=== PATIENT | female | born 1935 | race Caucasian/White ===

== ENCOUNTER 2016-12-16 23:23 | Inpatient (IN) | payer OTHER ==
[~2016-12-16] VITALS: Ht 152.4 cm; Wt 43.5 kg
[~2016-12-16 23:23] MED LIST: CITA20TA15 PO; GABA100C PO; HYDR-4452 PO; PRED5TAB7 PO; [UNRECOGNIZED DRUG - CODE] PO
[2016-12-16 23:39] VITALS: BP 146/78
--- NOTE | 2016-12-17 00:13 | NUR ---
TO ER BED 8
--- NOTE | 2016-12-17 00:15 | NUR ---
81 Y/O F BIB FAMILY W/C/O ABD PAIN, BACK PAIN AND CHEST PAIN X LAST NIGHT. DENIES ANY SOB. SISTER STATED PT FELL X TIMES LAT NIGHT AND SHE HAS BEING C/O PAIN SINCE THEN. EKG DONE AT BEDSIDE. ER MD MADE AWARE.
[2016-12-17 00:33] LABS: HEMATOCRIT 36.3 % (36-48); HEMOGLOBIN 11.9 g/dL (12.0-16.0); MEAN CORPUSCULAR HEMOGLOBIN 31 pg (27-31); MEAN CORPUSCULAR HGB CONC 33 g/dL (33-37); MEAN CORPUSCULAR VOLUME 95 fL (80-94); PLATELET COUNT (AUTO) 446 K/uL (140-450); RED BLOOD CELL COUNT(AUTO) 3.84 MIL/uL (4.20-5.40); RED CELL DISTRIBUTION WIDTH 13.7 % (11.6-13.7)
[2016-12-17] MEDS ORDERED: KETOROLAC 30 MG/ML VIAL IVP ONE (00:40)
[2016-12-17 00:45] LABS: WHITE BLOOD COUNT (AUTO) 15.9 K/uL (4.8-10.8)
[2016-12-17 00:46] LABS: BAND % (MANUAL) 11 % (0-8); EOSINOPHILS % (MANUAL) 1 % (0-4); LYMPHOCYTES % (MANUAL) 8 % (20-46); MONOCYTES % (MANUAL) 3 % (5-12); NEUTROPHILS % (MANUAL) 77 (43-65)
[2016-12-17 00:50] LABS: ALANINE AMINOTRANSFERASE 16 U/L (12-78); ALBUMIN 3.2 g/dL (3.4-5.0); ALKALINE PHOSPHATASE 59 U/L (46-116); ASPARTATE AMINOTRANSFERASE 17 U/L (15-37); CALCIUM 8.9 mg/dL (8.5-10.1); CARBON DIOXIDE 25.7 mmol/L (21-32); CHLORIDE 94 mmol/L (98-107); CREATININE 0.8 mg/dL (0.6-1.3); GLUCOSE 95 mg/dL (74-106); POTASSIUM 3.7 mmol/L (3.5-5.1); SODIUM SERUM 129 mmol/L (136-145); TOTAL BILIRUBIN 0.5 mg/dL (0.0-1.0); TOTAL PROTEIN, SERUM 7.5 g/dL (6.4-8.2); UREA NITROGEN, BLOOD 9 mg/dL (7-18)
[2016-12-17 00:55] LABS: INR 1.1 (0.8-1.2); LACTIC ACID 1.4 mmol/L (0.4-2.0); PARTIAL THROMBOPLASTIN TIME 25.7 secs (22-35.6); PROTHROMBIN TIME 10.9 secs (10.8-13.4)
--- NOTE | 2016-12-17 01:20 | NUR ---
PT RESTING IN BED, NO S/S OF DISTRESS NOTED AT THE MOMENT.
[2016-12-17] MEDS ORDERED: fentaNYL 0.05 MG/ML VIAL IVP ONE (01:30)
[2016-12-17 01:34] LABS: APPEARANCE,URINE SL CLOUDY (CLEAR); BILIRUBIN,URINE NEGATIVE (NEGATIVE); BLOOD, URINE TRACE-I (NEGATIVE); COLOR,URINE YELLOW (YELLOW); LEUKOCYTE ESTERASE ,URINE 2+ (NEGATIVE); NITRITE, URINE POSITIVE (NEGATIVE); PROTEIN,URINE NEGATIVE (NEGATIVE); UGLUCOSE NEGATIVE (NEGATIVE)
[2016-12-17 01:50] LABS: BACTERIA,URINE 4+ /HPF (None Seen); SQUAMOUS EPITHELIAL CELL,UR 0-3 (FEW) /LPF (0-3 (FEW)); URINE AMORPHOUS URATE 3+ /HPF (None Seen)
[2016-12-17] MEDS ORDERED: LEVOFLOXACIN 500 MG/D5W PREMIX 100 ML IV ONE (02:10)
[2016-12-17] MEDS ORDERED: LORazepam 2 MG/ML VIAL IVP ONE (02:20)
--- NOTE | 2016-12-17 03:19 | NUR ---
Patient will be admitted to care of DR BABIN. Admited to MED SURG. Will go to [facility] [address]. Belongings list completed. Report to IGNACIO HARPER. PT STABLE WITH VSS AT THE MOMENT.
--- NOTE | 2016-12-17 03:24 | NUR ---
PT TRASPORTED TO MED SURG VIA GURNEY BY EMT. THEODORE GIBBS.
[2016-12-17 03:25] VITALS: BP 109/64
--- NOTE | 2016-12-17 03:25 | NUR ---
Admitted from ER TO [facility], with chief complaint of ABDOMINAL PAIN, S/P FALL AT HOME , 81 y/o ,Female, Cooperative, AWAKE, A/OX2, FORGETFUL. HEAD TO TOE ASSESSMENT DONE WITH CHARGE NURSE KIKI, NOTED BRUISE ON BACK OF LEFT THIGH, AND PRESSURE ULCER AT THE SACRAL AREA. SAFETY MEASURES ENFORCED. NIECES AT THE BEDSIDE.oriented to call light, bed, phone,television, bathroom, smoking policy,visiting hours, procedures, ID bracelet on. Belongings list checked.
[2016-12-17] MEDS ORDERED: NACL 0.9% IRR 250 ML BOTTLE IR PRN (03:45)
[2016-12-17] MEDS ORDERED: Z-GUARD PASTE TP PRN (03:45)
[2016-12-17 04:00] VITALS: BP 110/66
--- NOTE | 2016-12-17 04:00 | NUR ---
Patient's Plan of Care was discussed and reviewed with RAMP MANAGER: MEREDITH MALIN
--- NOTE | 2016-12-17 07:00 | NUR ---
DR. BABIN CAME AND CHECKED PATIENT. WILL FOLLOW UP WITH NEW ORDERS.
--- NOTE | 2016-12-17 07:20 | NUR ---
RECEIVED PATIENT REPORT AT BEDSIDE. PATIENT ASLEEP BUT AROUSABLE. NO S/S OF DISTRESS NOTED. PATIENT ON ROOM AIR. IV LINE NOTED TO THE LEFT WRIST SALINE LOCKED. BED LOWERED WITH CALL LIGHT WITHIN REACH. WILL CONTINUE TO MONITOR
[2016-12-17] MEDS ORDERED: PANTOPRAZOLE 40 MG TABEC PO SCH (07:26)
[2016-12-17 08:00] VITALS: BP 119/58
--- NOTE | 2016-12-17 09:14 | NUR ---
PATIENT HAS BEEN SCREENED AND CATEGORIZED HIGH NUTRITION RISK. PATIENT WILL BE SEEN WITHIN 1-2 DAYS OF ADMISSION. 12/17/16-12/18/[address]
--- NOTE | 2016-12-17 09:30 | NUR ---
ADMINISTERED DUE MEDS. PATIENT TOLERATED WELL
[2016-12-17] MEDS: HYDROmorphone 1 MG/ML AMP IVP PRN ×3 (09:39→23:54)
[2016-12-17] MEDS: CITALOPRAM 20 MG TAB PO SCH (09:43)
[2016-12-17] MEDS: GABAPENTIN 100 MG CAP PO SCH (09:43)
[2016-12-17] MEDS: DOCUSATE SODIUM 100 MG GELCAP PO SCH ×2 (09:43→22:34)
[2016-12-17] MEDS: ENOXAPARIN 30 MG/0.3 ML SYR SUBQ SCH (09:44)
[2016-12-17] MEDS: DEXT 5% /NACL 0.9% 1,000 ML IV SCH (09:45)
[2016-12-17] MEDS: NACL 0.9% IRR 250 ML BOTTLE IR SCH (13:00)
[2016-12-17] MEDS: Z-GUARD PASTE TP SCH (13:00)
--- NOTE | 2016-12-17 13:00 | NUR ---
PATIENT ASLEEP IN BED. NO S/S OF DISTRESS NOTED
--- NOTE | 2016-12-17 14:40 | NUR ---
12/17/16 RD INITIAL ASSESSMENT COMPLETED PLEASE REFER TO NUTRITION ASSESSMENT UNDER CARE ACTIVITY FOR ESTIMATED NUTRITIONAL NEEDS. 1. CONTINUE REGULAR, MECHANICAL SOFT DIET 2. ADD VITAMIN C SUPPLEMENT 100-200 MG/DAILY 3. RD TO FOLLOW-UP 2-3 DAYS; HIGH RISK RUTH MCCLENDON, ROXANE
[2016-12-17 16:00] VITALS: BP 110/53
--- NOTE | 2016-12-17 17:07 | NUR ---
Social Service Note: Per patient's daughter Latoya, she spoke with MD and MD informed her patient will need short term snf placement for physical therapy. She stated [facility] sn[facility] preference [facility] , her second snf choice is [facility] . I faxed inquiry to Priyanka Hester.
--- NOTE | 2016-12-17 17:50 | NUR ---
SPOKE WITH RALPH, PATIENT'S NIECE, AND WAS INFORMED THAT PATIENT WAS SCHEDULED TO HAVE COLONOSCOPY AND EGD OUTPATIENT PRIOR TO BEING ADMITTED TO THE HOSPITAL. DR BABIN NOTIFIED. DR BABIN ALSO NOTIFIED OF THE PATIENT'S PERSISTENT ABD PAIN. DR BABIN ORDERS TO HAVE DR GRANT GI CONSULT. DR GRANT PAGED. WAITING FOR CALL BACK
--- NOTE | 2016-12-17 19:42 | NUR ---
PATIENT REPORT GIVEN AT BEDSIDE. PATIENT ENDORSED IN STABLE CONDITION
--- NOTE | 2016-12-17 19:45 | NUR ---
RECEIVED BEDSIDE REPORT FROM RITO PIERRE. PATIENT IS AWAKE AND RESTING IN BED, WITH FAMILY AT BEDSIDE. NO SIGNS OF ACUTE DISTRESS OR SOB NOTED. THERE IS A #24 IN THE LEFT WRIST WITH D5NS AT 50 ML/HR. SITE IS DRY, INTACT, AND ASYMPTOMATIC. THERE IS A TORO CATHETER IN PLACE DRAINING TO GRAVITY. THERE IS A MODERATE AMOUNT OF CLEAR LIGHT CRISTOBAL URINE NOTED IN THE TORO BAG. THERE IS A SACRAL PRESSURE ULCER. TONIGHT'S PLAN OF CARE TO INCLUDE MEDICATION ADMINISTRATION, VITAL SIGNS, MONITORING, AND REPOSITION Q2H TO OFFLOAD PRESSURE AREAS. HOB AT 30 DEGREES. SAFETY MEASURES ENFORCED, WITH CALL LIGHT WITHIN REACH. WILL CONTINUE TO MONITOR PATIENT.
--- NOTE | 2016-12-17 20:40 | NUR ---
PATIENT'S NIECE RALPH AT BEDSIDE VISITING PATIENT. NO SIGNS OF ACUTE DISTRESS NOTED. CALL LIGHT WITHIN REACH. CONTINUE TO MONITOR PATIENT.
--- NOTE | 2016-12-17 20:48 | NUR ---
PATIENT'S NIECE RALPH LEFT UNIT. NO SIGNS OF DISTRESS NOTED. CONTINUE TO MONITOR PATIENT.
[2016-12-17] MEDS ORDERED: predniSONE 5 MG TAB ONE (21:28)
[2016-12-17] MEDS: predniSONE 5 MG TAB PO SCH (21:32)
[2016-12-17] MEDS: HYDROcodone/APAP 10/325 MG 1 TAB TAB PO PRN (21:32)
--- NOTE | 2016-12-17 21:34 | NUR ---
TOLERATED DUE MEDICATIONS. UNABLE TO ACCESS AND ADMINISTER SCHEDULE 2100 COLACE 100MG PO. ENGINE[employer]ING [employer] RN AND CHARGE NURSE DAVID PIERRE MADE AWARE. ASKED [employer] RN TO FOR MEDICATION TO ADMINISTER TO PATIENT. WILL ADMINISTER MEDICATION ONCE I RECEIVE IT FROM LIZZY KEVIN RN. CONTINUE TO MONITOR PATIENT.
[2016-12-17] MEDS ORDERED: HYDROcodone/APAP 10/325 MG 1 TAB TAB ONE (21:35)
--- NOTE | 2016-12-17 23:54 | NUR ---
PATIENT REPORTING PAIN 10/10. PATIENT'S VITAL SIGNS ARE 137/66 AND HR 104. ADMINISTERED 0.5MG DILAUDID PRN PER DOCTOR'S ORDERS. CONTINUE TO MONITOR PATIENT.
[2016-12-17] MEDS ORDERED: HYDROmorphone 1 MG/ML AMP ONE (23:57)
[2016-12-18] VITALS: BP 137/66
[2016-12-18] MEDS: Z-GUARD PASTE TP SCH ×2 (00:10→12:14)
[2016-12-18] MEDS: NACL 0.9% IRR 250 ML BOTTLE IR SCH ×2 (00:10→12:15)
--- NOTE | 2016-12-18 02:00 | NUR ---
PATIENT RESTING COMFORTABLY IN BED WITH NO SIGNS OF DISTRESS NOTED. CALL LIGHT WITHIN REACH. CONTINUE TO MONITOR PATIENT.
[2016-12-18] MEDS: DEXT 5% /NACL 0.9% 1,000 ML IV SCH ×2 (03:00→05:32)
--- NOTE | 2016-12-18 03:30 | NUR ---
ROUNDED ON PATIENT. PATIENT IS RESTING COMFORTABLY IN BED. BREATHING IS EVEN AND UNLABORED. SAFETY MEASURES ENFORCED, WITH CALL LIGHT WITHIN REACH. WILL CONTINUE TO MONITOR PATIENT.
--- NOTE | 2016-12-18 04:55 | NUR ---
REPOSITIONED PATIENT FOR COMFORT. NO SIGNS OF DISTRESS NOTED. PATIENT'S NEEDS MET AT THIS TIME. SAFETY MEASURES ENFORCED, WITH CALL LIGHT WITHIN REACH. CONTINUE TO MONITOR PATIENT.
[2016-12-18] MEDS: PANTOPRAZOLE 40 MG TABEC PO SCH (05:32)
[2016-12-18 06:07] LABS: BASOPHILS # (AUTO) 0.2 K/uL (0.00-0.22); BASOPHILS % (AUTO) 1.4 % (0.0-2.0); EOSINOPHILS # (AUTO) 0.1 K/uL (0-0.4); EOSINOPHILS % (AUTO) 1.1 % (0.0-4.0); HEMATOCRIT 31.5 % (36-48); LYMPHOCYTES # (AUTO) 0.6 K/uL (2.5-16.5); LYMPHOCYTES % (AUTO) 4.6 % (20.5-51.1); MEAN CORPUSCULAR HEMOGLOBIN 30 pg (27-31); MEAN CORPUSCULAR HGB CONC 32 g/dL (33-37); MEAN CORPUSCULAR VOLUME 96 fL (80-94); MONOCYTES # (AUTO) 0.8 K/uL (0.8-1.0); MONOCYTES % (AUTO) 6.4 % (1.7-9.3); NEUTROPHILS # (AUTO) 10.6 K/uL (1.8-7.7); NEUTROPHILS % (AUTO) 86.5 % (42.2-75.2); PLATELET COUNT (AUTO) 329 K/uL (140-450); RED CELL DISTRIBUTION WIDTH 13.7 % (11.6-13.7)
[2016-12-18 06:35] LABS: CALCIUM 7.8 mg/dL (8.5-10.1); CARBON DIOXIDE 24.3 mmol/L (21-32); CHLORIDE 101 mmol/L (98-107); CREATININE 0.7 mg/dL (0.6-1.3); GLUCOSE 106 mg/dL (74-106); POTASSIUM 4.3 mmol/L (3.5-5.1); SODIUM SERUM 132 mmol/L (136-145); UREA NITROGEN, BLOOD 8 mg/dL (7-18)
[2016-12-18] MEDS: HYDROcodone/APAP 10/325 MG 1 TAB TAB PO PRN ×2 (06:43→17:03)
--- NOTE | 2016-12-18 07:06 | NUR ---
DR. BABIN AT THE NURSING STATION. PROVIDED DOCTOR WITH PATIENT'S STATUS. NO NEW ORDERS GIVEN AT THIS TIME.
--- NOTE | 2016-12-18 07:09 | NUR ---
PATIENT IN STABLE CONDITION. ENDORSED CONTINUITY OF CARE TO NICOLAS PIERRE AND CLAIRE PIERRE.
[2016-12-18 07:18] LABS: WHITE BLOOD COUNT (AUTO) 12.3 K/uL (4.8-10.8)
--- NOTE | 2016-12-18 07:28 | NUR ---
RECEIVED PATIENT IN STABLE CONDITION FROM JESI RN. WILL MONITOR PATIENT.
--- NOTE | 2016-12-18 07:30 | NUR ---
RECEIVED PATIENT AWAKE, ORIENTED TO SELF. ABLE TO MAKE HER NEEDS KNOWN. LEFT WRIST PERIPHERAL IV PATENT AND INTACT. URINE AND BOWEL INCONTINENT. NO COMPLAINTS OF PAIN AT THIS TIME. CALL LIGHT WITHIN REACH. WILL MONITOR PATIENT.
[2016-12-18 08:15] VITALS: BP 147/59
[2016-12-18] MEDS: HYDROmorphone 1 MG/ML AMP IVP PRN ×2 (08:49→21:15)
[2016-12-18] MEDS: DOCUSATE SODIUM 100 MG GELCAP PO SCH ×2 (08:55→21:14)
[2016-12-18] MEDS: CITALOPRAM 20 MG TAB PO SCH (08:55)
[2016-12-18] MEDS: GABAPENTIN 100 MG CAP PO SCH (08:56)
[2016-12-18] MEDS: ENOXAPARIN 30 MG/0.3 ML SYR SUBQ SCH (09:03)
--- NOTE | 2016-12-18 10:19 | NUR ---
RESTING COMFORTABLE AT THIS TIME. CALL LIGHT WITHIN REACH.
--- NOTE | 2016-12-18 10:39 | NUR ---
SS NOTE: PER SOHAIL FROM [facility] ([phone]), THEY ARE ABLE TO ACCEPT PT UPON DISCHARGE LONG PT HAS 3 QUALIFYING MIDNIGHTS.
[2016-12-18 16:00] VITALS: BP 145/63
--- NOTE | 2016-12-18 19:18 | NUR ---
REPORT GIVEN TO NIGHT NURSE FOR CONTINUITY OF CARE. PATIENT IN STABLE CONDITION.
--- NOTE | 2016-12-18 19:30 | NUR ---
RECEIVED REPORTS FROM DAY RN. MED-SURG PT RESTING IN BED. AWAKE, ALERT, ORIENTED X2-3. IV LT, WRIST, 24G, FLUID INFUSING WELL, TORO CATH PATENT AND DRAINING CLEAR YELLOW URINE. REDNESS WITH PARTIAL THICKNESS NOTED ON THE SACRALCOCCYX TO BILATERAL BUTTOCKS. CALL LIGHT WITHIN REACH, SAFETY MEASURE ENSURED, WILL CONTINUE TO MONITOR.
--- NOTE | 2016-12-18 21:00 | NUR ---
DAUGHTER AT BEDSIDE. HAVE CONCERN REGARDING ABDOMINAL PAIN OF PT. MADE AWARE THAT THERE IS AN ORDER FOR GI CONSULT. WILL FOLLOW UP BY CALLING DR. GRANT.
[2016-12-18] MEDS: predniSONE 5 MG TAB PO SCH (21:14)
--- NOTE | 2016-12-18 21:43 | NUR ---
PAGED DR. Terri GRANT TO FOLLOW UP CONSULT . LEFT MESSAGE ON THE PAGER. WILL WAIT FOR CALL BACK.
--- NOTE | 2016-12-18 22:40 | NUR ---
CALLED AGAIN DR. Terri GRANT ON . TALKED TO DR GRANT. MADE HIM AWARE ABOUT THE CONSULT. WILL SEE PT TOMORROW.
[2016-12-19] VITALS: BP 167/65
[2016-12-19] MEDS: NACL 0.9% IRR 250 ML BOTTLE IR SCH ×2 (01:14→12:41)
[2016-12-19] MEDS: Z-GUARD PASTE TP SCH ×2 (01:14→12:41)
[2016-12-19] MEDS: HYDROcodone/APAP 10/325 MG 1 TAB TAB PO PRN ×2 (02:17→17:46)
--- NOTE | 2016-12-19 02:53 | NUR ---
IV ACCESS ON THE RT THUMB INFILTRATED,. DC'D. STARTED A NEW IV ACCESS ON THE RT FA#[id number]. WITH GOOD BLOOD RETURN, CLEAR AND PATENT.
[2016-12-19] MEDS: DEXT 5% /NACL 0.9% 1,000 ML IV SCH ×2 (02:56→12:42)
--- NOTE | 2016-12-19 04:30 | NUR ---
PT AWAKE, NO DISTRESS NOTED. WILL CONTINUE TO MONITOR.
[2016-12-19 05:54] LABS: BASOPHILS % (AUTO) 0.2 % (0.0-2.0); EOSINOPHILS # (AUTO) 0.1 K/uL (0-0.4); EOSINOPHILS % (AUTO) 1.2 % (0.0-4.0); HEMATOCRIT 28.1 % (36-48); HEMOGLOBIN 9.3 g/dL (12.0-16.0); LYMPHOCYTES # (AUTO) 0.6 K/uL (2.5-16.5); LYMPHOCYTES % (AUTO) 5.7 % (20.5-51.1); MEAN CORPUSCULAR HEMOGLOBIN 32 pg (27-31); MEAN CORPUSCULAR HGB CONC 33 g/dL (33-37); MEAN CORPUSCULAR VOLUME 96 fL (80-94); MONOCYTES # (AUTO) 1.1 K/uL (0.8-1.0); MONOCYTES % (AUTO) 10.5 % (1.7-9.3); NEUTROPHILS # (AUTO) 8.5 K/uL (1.8-7.7); NEUTROPHILS % (AUTO) 82.4 % (42.2-75.2); PLATELET COUNT (AUTO) 286 K/uL (140-450); RED BLOOD CELL COUNT(AUTO) 2.93 MIL/uL (4.20-5.40); RED CELL DISTRIBUTION WIDTH 13.3 % (11.6-13.7)
[2016-12-19] MEDS: HYDROmorphone 1 MG/ML AMP IVP PRN ×2 (06:05→23:35)
[2016-12-19] MEDS: PANTOPRAZOLE 40 MG TABEC PO SCH (06:11)
[2016-12-19 06:24] LABS: ALANINE AMINOTRANSFERASE 11 U/L (12-78); ALBUMIN 2.1 g/dL (3.4-5.0); ALKALINE PHOSPHATASE 39 U/L (46-116); ANION GAP 10.6 (8-16); ASPARTATE AMINOTRANSFERASE 11 U/L (15-37); CALCIUM 7.8 mg/dL (8.5-10.1); CARBON DIOXIDE 24.2 mmol/L (21-32); CHLORIDE 101 mmol/L (98-107); CREATININE 0.6 mg/dL (0.6-1.3); GLUCOSE 102 mg/dL (74-106); POTASSIUM 3.8 mmol/L (3.5-5.1); SODIUM SERUM 132 mmol/L (136-145); TOTAL BILIRUBIN 0.3 mg/dL (0.0-1.0); TOTAL PROTEIN, SERUM 5.5 g/dL (6.4-8.2); UREA NITROGEN, BLOOD 5 mg/dL (7-18)
--- NOTE | 2016-12-19 06:45 | NUR ---
PT RESTING IN BED, NO S/S OF ACUTE DISTRESS OR DISCOMFORT NOTED, RESPIRATION EVEN AND UNLABORED, CALL LIGHT WITHIN REACH, SAFETY MEASURE ENSURED ,WILL CONTINUE TO MONITOR.
[2016-12-19 06:58] LABS: WHITE BLOOD COUNT (AUTO) 10.3 K/uL (4.8-10.8)
--- NOTE | 2016-12-19 07:20 | NUR ---
ENDORSED PLAN OF CARE TO DAY RN, PT IS STABLE.
--- NOTE | 2016-12-19 07:30 | NUR ---
PATIENT ALERT ORIENTED X 2 WITH HISTORY OF ALZHEIMER, DAUGHTER AT BEDSIDE. FALL PREVENTION IN PLACED.
[2016-12-19 08:00] VITALS: BP 159/83
[2016-12-19] MEDS: GABAPENTIN 100 MG CAP PO SCH (09:00)
[2016-12-19] MEDS: DOCUSATE SODIUM 100 MG GELCAP PO SCH ×2 (09:01→21:22)
[2016-12-19] MEDS: CITALOPRAM 20 MG TAB PO SCH (09:01)
[2016-12-19] MEDS: ENOXAPARIN 30 MG/0.3 ML SYR SUBQ SCH (09:05)
--- NOTE | 2016-12-19 09:49 | NUR ---
Social Service Note: Per Deena from [facility] , bed will be available tomorrow, 37A station 2.
--- NOTE | 2016-12-19 13:01 | NUR ---
SPOKE WITH SOHAIL FROM [facility]. WHEN SHE GOES TO [facility], SHE WILL BE UNDER DR. LILIANA BABIN. I CALLED [facility] AND GOT SWANSON QUOTES FOR TRANSPORT. FOR GURNEY TO SNF IS $118 AND FOR WC TRANSPORT IS $69. THAT IS THEIR WEEKEND RATE. I CALL THE NIECE, RALPH, AND TOLD HER ABOUT POS DC TOMORROW TO [facility] AND SHE WOULD GO TO ROOM 37A. I ASKED HER IF SHE WAS ABLE TO PAY FOR TRANSPORT, AND SHE SAID NO. I ALSO INFORMED HER THAT THE PATIENT NO LONGER HAD [facility] AND SHE MAY WANT TO CHECK INTO IT. SHE SAID SHE WOULD BE ABLE TO TRANSPORT THE PATIENT TO SNF. I SPOKE WITH SCOTT PIERRESTACKER STRAIGHTENER NURSE AND TOLD HER WHAT RALPH SAID, BUT I TOLD HER TO MAKE SURE IT WAS SAFE FOR NIECE TO TRANSPORT PATIENT, IF NOT USE [facility]. RALPH ALSO SAID SHE DOESN'T WANT THE PATIENT TO GO TO THE SNF UNTIL SEEN BY GI. I INFORMED SCOTT PIERRESTACKER STRAIGHTENER ANNMARIE.
--- NOTE | 2016-12-19 14:00 | NUR ---
PER DR. GRANT PATIENT CLEARED FOR DISCHARGE PER GI STANDPOINT, NO NEED TO REPEAT PROCEDURE.
[2016-12-19 16:00] VITALS: BP 158/77
--- NOTE | 2016-12-19 19:49 | NUR ---
SBAR REPORT GIVEN TO NIGHT RN IN A STABLE CONDITION.
--- NOTE | 2016-12-19 19:55 | NUR ---
RECEIVED REPORTS FROM DAY RN. MED-SURG PT RESTING IN BED. AWAKE, ALERT, ORIENTED X2. FAMILY MEMBER IS AT BEDSIDE, VITAL SIGN TAKEN, READ , T 98.3, BP 123/51, HR 81, RR 18, O2 SAT 97%. IV PATENT AND INTACT, FLUID INFUSING WELL, TORO CATH PATENT AND DRAINING CLEAR YELLOW URINE. REDNESS NOTED ON THE SACRALCOCCYX TO BILATERAL BUTTOCKS. CALL LIGHT WITHIN REACH, SAFETY MEASURE ENSURED, WILL CONTINUE TO MONITOR.
[2016-12-19] MEDS: predniSONE 5 MG TAB PO SCH (21:22)
[2016-12-19] MEDS: SENNA 8.6 MG TAB PO SCH (21:22)
--- NOTE | 2016-12-19 21:27 | NUR ---
PT RESTING IN BED, NO S/S OF ACUTE DISTRESS NOTED, PM MEDS GIVEN, PT TOLERATED WELL. CALL LIGHT WITHIN REACH, SAFETY MEASURE ENSURED, WILL CONTINUE TO MONITOR
--- NOTE | 2016-12-19 23:30 | NUR ---
PT ASLEEP IN BED, RESPIRATION EVEN AND UNLABORED, NO S/S OF ACUTE DISTRESS NOTED, CALL LIGHT WITHIN REACH, SAFETY MEASURE ENSURED, WILL CONTINUE TO MONITOR.
--- NOTE | 2016-12-19 23:35 | NUR ---
PT CALLED AND STATED PAIN 8/10 AROUND ABDOMINAL AREA. PAIN MEDICATION GIVEN ORDERED, WILL REASSESS PAIN LEVEL WITHIN 30MINS.
[2016-12-20] VITALS: BP 154/73
--- NOTE | 2016-12-20 00:05 | NUR ---
PT ASLEEP IN BED, RESPIRATION EVEN AND UNLABORED, NO S/S OF DISCOMFORT NOTED, CALL LIGHT WITHIN REACH, WILL CONTINUE TO MONITOR.
[2016-12-20] MEDS: Z-GUARD PASTE TP SCH ×2 (01:54→13:00)
[2016-12-20] MEDS: NACL 0.9% IRR 250 ML BOTTLE IR SCH ×2 (01:54→13:00)
--- NOTE | 2016-12-20 02:53 | NUR ---
PT SLEEPING IN BED, NO S/S OF ACUTE DISTRESS NOTED. RESPIRATION EVEN AND UNLABORED, WILL CONTINUE TO MONITOR
[2016-12-20] MEDS: DEXT 5% /NACL 0.9% 1,000 ML IV SCH (05:10)
[2016-12-20] MEDS: PANTOPRAZOLE 40 MG TABEC PO SCH (06:04)
[2016-12-20] MEDS: HYDROcodone/APAP 10/325 MG 1 TAB TAB PO PRN ×2 (06:50→13:46)
--- NOTE | 2016-12-20 06:50 | NUR ---
PT STATED PAIN 6/10. PAIN MED GIVEN ORDERED. NO S/S OF ACUTE DISTRESS NOTED. WILL CONTINUE TO MONITOR
--- NOTE | 2016-12-20 07:30 | NUR ---
ENDORSED PLAN OF CARE TO DAY RN, PT IS STABLE.
--- NOTE | 2016-12-20 07:35 | NUR ---
RECEIVED REPORT FROM IGNACIO NICHOLAS. PT IS AWAKE, RESTING IN BED, PT IS A/OX3, HAS IV ON THE RT FA, PATENT, INTACT, INFUSING WELL, SACRAL DRYNESS NOTED, THERE IS NO OPEN WOUND, NO S/S OF RESPIRATORY DISTRESS OR DISCOMFORT NOTED, SAFETY/FALL PRECAUTIONS ARE IN PLACE, CALL LIGHT IS WITHIN REACH, WILL CONTINUE TO MONITOR.
[2016-12-20 08:00] VITALS: BP 152/66
--- NOTE | 2016-12-20 08:00 | NUR ---
PATIENT'S NIECE IS AT PT BEDSIDE AT THIS TIME.
--- NOTE | 2016-12-20 08:20 | NUR ---
CALLED DR. BABIN TO LET HIM KNOW THE PATIENT'S FAMILY WAS HERE AND WANTED TO SPEAK TO HIM, DR. BABIN SAID HE WAS ON HIS WAY AND WOULD BE HERE IN ABOUT HALF HOUR.
[2016-12-20] MEDS: CITALOPRAM 20 MG TAB PO SCH (08:37)
[2016-12-20] MEDS: GABAPENTIN 100 MG CAP PO SCH (08:37)
[2016-12-20] MEDS: SENNA 8.6 MG TAB PO SCH (08:38)
[2016-12-20] MEDS: DOCUSATE SODIUM 100 MG GELCAP PO SCH (08:38)
--- NOTE | 2016-12-20 08:38 | NUR ---
DUE MEDICATIONS GIVEN, PT TOLERATED WELL, NIECE IS AT BEDSIDE, CALL LIGHT WITHIN REACH, WILL CONTINUE TO MONITOR.
[2016-12-20] MEDS: ENOXAPARIN 30 MG/0.3 ML SYR SUBQ SCH (08:50)
[2016-12-20] MEDS ORDERED: LACTULOSE 20 GM/30 ML UDC PO SCH (09:00)
--- NOTE | 2016-12-20 09:23 | NUR ---
12/20/16 RD FOLLOW UP COMPLETED PLEASE REFER TO NUTRITION PROGRESS NOTE UNDER CARE ACTIVITY FOR ESTIMATED NUTRITION NEEDS. RD RECOMMENDATIONS: 1. CONTINUE ON CURRENT DIET. 2. RDN TO PROVIDE HEALTH SHAKE WITH MEALS TID FOR UNDERWT STATUS. 3. RD WILL F/U 5-7 DAYS; LOW RISK. MICHOACANO BALL MS, RDN
--- NOTE | 2016-12-20 09:56 | NUR ---
Social Service Note: I called and spoke with foundry supervisor Indu from [facility] , informed her patient will be transfer to their facility today. Per Indu, patient may go to same room # 37A station 2, I faxed MD discharge order to [facility].
--- NOTE | 2016-12-20 10:40 | NUR ---
PT IS SLEEPING IN BED AT THIS TIME, NO S/S OF RESPIRATORY DISTRESS OR DISCOMFORT NOTED, CALL LIGHT WITHIN REACH.
--- NOTE | 2016-12-20 11:05 | NUR ---
SPOKE WITH PT'S NIECE RALPH AT THE BEDSIDE EARLIER AND EXPRESSED HER CONCERN IN TAKING PT TO [facility] HERSELF ( PT IS A FALL RISK ) AND SHE IS BY HERSELF BUT SHE DOES NOT HAVE MEANS TO PAY [facility] OR [facility]. PER ENDORSEMENT FROM PRE[facility] SHIFT PT CAN BE TRANSPORTED BY [facility] AND [facility] IF THERE IS SAFETY ISSUE. SOHAM- SPACE PHYSICIST MADE AWARE. CALLED [facility] AND SPOKE WITH FARZANEH ETA IS AT 2:30 PM TODAY. CAMPBELL-IGNACIO AWARE.
--- NOTE | 2016-12-20 11:15 | NUR ---
RECEIVED PHONE CALL FROM RALPH, PATIENT'S NIECE SHE SAID SHE WAS CALLING BACK BECAUSE SHE HAD A MISSED CALL FROM THE HOSPITAL, I LET HER KNOW KENYON, CHARGE NURSE HAD CALLED HER TO LET HER KNOW THE PATIENT WOULD BE PICKED UP TO DAY AT 1430 TO BE TRANSFERRED TO [facility].
[2016-12-20] MEDS ORDERED: ROC2I IV (11:21)
--- NOTE | 2016-12-20 12:00 | NUR ---
PT SLEEPING AT THIS TIME, CALL LIGHT WITHIN REACH, WILL CONTINUE TO MONITOR.
--- NOTE | 2016-12-20 14:00 | NUR ---
REMOVED ID WRIST BAND, DISCHARGE INSTRUCTION GIVEN, PT STATED SHE IS UNABLE TO SIGN, BUT VERBALIZED UNDERSTANDING.
--- NOTE | 2016-12-20 15:25 | NUR ---
[facility] HERE TO TRANSFER PATIENT, PATIENT'S NIECE RALPH ARIAS AT PATIENT BEDSIDE, PT STABLE UPON DISCHARGE
--- NOTE | 2016-12-20 15:30 | NUR ---
I CALLED ANGLE FROM [facility] IN [place] TO LET HER KNOW PT WAS BEING DISCHARGED WITH TORO CATHETER IN PLACE DUE TO URINARY RETENTION.
--- NOTE | 2016-12-20 16:53 | NUR ---
MADE A FOLLOW UP PHONE CALL TO RUBY BOX WORKER OF [facility]. RUBY STATED NO ROOM AVAILABLE YET AT [facility] (FAMILY'S CHOICE OF SNF) OF THIS MOMENT, AUTHORIZATION IS PENDING FOR REVIEW. PER RUBY, SHE WILL BE AVAILABLE UNTIL 8PM TONIGHT. Addendum: 12/21/16 at 1127 by Sophie Terrazas RN DISREGARD ABOVE NOTES. WRONG PATIENT.
== END 2016-12-20 15:25 | DRG 871 ==
LOC: MED 23:23 → MTU 12-17 03:07
PROVIDERS: ADMIT Family Medicine; ATTEND Family Medicine
DX: A41.9 Sepsis, unspecified organism (principal); E43 Unspecified severe protein-calorie malnutrition; N39.0 Urinary tract infection, site not specified; E87.1 Hypo-osmolality and hyponatremia; F11.20 Opioid dependence, uncomplicated; Z68.1 Body mass index [BMI] 19.9 or less, adult; G89.29 Other chronic pain; J45.909 Unspecified asthma, uncomplicated; D63.8 Anemia in other chronic diseases classified elsewhere; F32.9 Major depressive disorder, single episode, unspecified; F41.9 Anxiety disorder, unspecified; I10 Essential (primary) hypertension; Z96.641 Presence of right artificial hip joint; G30.9 Alzheimer's disease, unspecified; M19.90 Unspecified osteoarthritis, unspecified site; M06.9 Rheumatoid arthritis, unspecified; K59.00 Constipation, unspecified; R33.9 Retention of urine, unspecified; M81.0 Age-related osteoporosis without current pathological fracture; K21.9 Gastro-esophageal reflux disease without esophagitis; G90.9 Disorder of the autonomic nervous system, unspecified; F02.80 Dementia in other diseases classified elsewhere, unspecified severity, without behavioral disturbance, psychotic disturbance, mood disturbance, and anxiety; W18.30XA Fall on same level, unspecified, initial encounter; Y93.89 Activity, other specified; Z91.81 History of falling; Y92.89 Other specified places as the place of occurrence of the external cause; Y99.8 Other external cause status; Z88.5 Allergy status to narcotic agent; Z79.899 Other long term (current) drug therapy; Z87.81 Personal history of (healed) traumatic fracture; Z28.21 Immunization not carried out because of patient refusal
CPT/HCPCS: 36415; 71010; 80048; 80053; 81001; 83605; 83880; 84484; 85025; 85610; 85730; 87040; 87081; 87086; 93005; 96365; 96375; 97110; 97116; 97140; 97530; 99285; J0696; J1170; J1650; J1885; J1956; J2060; J3010; J7042; J7060; J7512; Q0092

== ENCOUNTER 2017-03-11 00:51 | Inpatient (IN) | payer OTHER ==
[~2017-03-11] VITALS: Ht 152.4 cm; Wt 44.7 kg
[~2017-03-11 00:51] MED LIST changes: +ROC2I IV
[2017-03-11 00:54] VITALS: BP 130/65
--- NOTE | 2017-03-11 01:01 | NUR ---
PT TAKEN TO BED 7
--- NOTE | 2017-03-11 01:10 | NUR ---
81 Y/O F W/C/O ALOC, FEVER, COUGH X 1 DAY, ABD/LOW BACK PAIN X YEARS. PT. ON F/C , FAMILY STATES DON'T KNOW MEDICAL HX.
[2017-03-11] MEDS ORDERED: ACETAMINOPHEN 325 MG TAB ONE (01:14)
--- NOTE | 2017-03-11 01:23 | NUR ---
Patient being evaluated by Dr. Mann at bedside.
[2017-03-11 01:27] LABS: ANION GAP 12.8 (8-16); CARBON DIOXIDE 23.2 mmol/L (21-32); CHLORIDE 94 mmol/L (98-107); CREATININE 1.1 mg/dL (0.6-1.3); GLUCOSE 148 mg/dL (74-106); SODIUM SERUM 126 mmol/L (136-145); UREA NITROGEN, BLOOD 15 mg/dL (7-18)
[2017-03-11 01:35] LABS: BASOPHILS # (AUTO) 0.9 K/uL (0.00-0.22); BASOPHILS % (AUTO) 4.5 % (0.0-2.0); EOSINOPHILS # (AUTO) 0.4 K/uL (0-0.4); EOSINOPHILS % (AUTO) 1.9 % (0.0-4.0); HEMATOCRIT 34.1 % (36-48); HEMOGLOBIN 11.2 g/dL (12.0-16.0); LYMPHOCYTES # (AUTO) 1.4 K/uL (2.5-16.5); MEAN CORPUSCULAR HEMOGLOBIN 31 pg (27-31); MEAN CORPUSCULAR HGB CONC 33 g/dL (33-37); MEAN CORPUSCULAR VOLUME 93 fL (80-94); MONOCYTES # (AUTO) 0.8 K/uL (0.8-1.0); MONOCYTES % (AUTO) 4.2 % (1.7-9.3); NEUTROPHILS # (AUTO) 15.5 K/uL (1.8-7.7); NEUTROPHILS % (AUTO) 81.9 % (42.2-75.2); PLATELET COUNT (AUTO) 487 K/uL (140-450); RED BLOOD CELL COUNT(AUTO) 3.68 MIL/uL (4.20-5.40); RED CELL DISTRIBUTION WIDTH 14.4 % (11.6-13.7)
[2017-03-11 01:36] LABS: LYMPHOCYTES % (AUTO) 7.5 % (20.5-51.1)
[2017-03-11 01:42] LABS: ALBUMIN 2.7 g/dL (3.4-5.0); ASPARTATE AMINOTRANSFERASE 13 U/L (15-37); TOTAL BILIRUBIN 0.7 mg/dL (0.0-1.0)
--- NOTE | 2017-03-11 02:07 | NUR ---
# 16 FR Taylor catheter with 10 ml utilizing sterile technique. Immediate return of CLOUDY YELLOW ml urine noted. Bedside drainage bag placed below level of bladder. Urine sample collected and sent to lab. Pt tolerated procedure .
[2017-03-11] MEDS ORDERED: NACL 0.9% 1,000 ML IV ONE (02:10)
[2017-03-11] MEDS ORDERED: LEVOFLOXACIN 750 MG/D5W PREMIX 150 ML IV ONE (02:10)
--- NOTE | 2017-03-11 02:11 | NUR ---
Patient noted to have existing wounds upon arrival to ER. Photos taken of wound and placed in chart. Wound covered with dressing. Physician informed.
--- NOTE | 2017-03-11 02:27 | NUR ---
PT TAKEN TO CT
--- NOTE | 2017-03-11 02:42 | NUR ---
PT RETURN FROM CT
[2017-03-11] MEDS ORDERED: ACETAMINOPHEN EXTRA STRENGTH 500 MG TAB PO ONE (02:50)
[2017-03-11] MEDS ORDERED: IBUPROFEN 600 MG TAB PO ONE (03:00)
--- NOTE | 2017-03-11 03:44 | NUR ---
Pt report given to IGNACIO TONEY. Transfer of care at this time.
--- NOTE | 2017-03-11 03:52 | NUR ---
PT TAKEN TO FLOOR VIA GURNEY ACCOMPANIED BY RN AND EMT.
--- NOTE | 2017-03-11 04:00 | NUR ---
RECEIVED PT FROM ER VIA MATEO CASTORENA SPEAKER AAOX4 ON TELEMETRY SR ,IV ON LEFT FA INFUSING WELL TORO CATH DRAINING WELL DARK CRISTOBAL COLOR, ON SACROCOCCYGEAL AREA PRESSURE ULCER PT AND FAM ARE ORIENTED TOTHE FLOOR CALL LIGHT WITHIN REAS, PENDING DR TALYA Kim TO PUT ORDER AND ADMIT THE PT
[2017-03-11 04:45] VITALS: BP 99/49
--- NOTE | 2017-03-11 04:45 | NUR ---
DR BABIN GIVE ORDERS TO FOLLOW
[2017-03-11] MEDS: NACL 0.9% 1,000 ML IV SCH ×2 (04:50→15:12)
[2017-03-11] MEDS: Z-GUARD PASTE TP SCH ×2 (06:10→13:18)
--- NOTE | 2017-03-11 07:00 | NUR ---
DR BABIN IS HERE AND SEE THE PT AND ORDERS TO FOLLOW
--- NOTE | 2017-03-11 07:29 | NUR ---
REPORT GIVEN TO CAMPBELL PIERRE FOR CONTINUITY OF CARE
--- NOTE | 2017-03-11 07:30 | NUR ---
RECEIVED REPORT FROM IGNACIO TONEY. PT IS AWAKE, RESTING IN BED, PT IS A/OX2, PATIENT HAS IV ON THE LEFT WRIST, PATENT, INTACT, FLUSHING WELL, PT HAS SACRAL PRESSURE WOUND, TORO CATHETER IN PLACE, TORO BAG EMPTY AT THIS TIME, NO S/S OF RESPIRATORY DISTRESS OR DISCOMFORT NOTED, DISCUSSED PLAN OF CARE WITH PT, PT UNABLE TO COMPREHEND, SAFETY/FALL PRECAUTIONS ARE IN PLACE, CALL LIGHT WITHIN REACH, WILL CONTINUE TO MONITOR.
[2017-03-11 08:00] VITALS: BP 108/51
[2017-03-11] MEDS: DOCUSATE SODIUM 100 MG GELCAP PO SCH ×2 (08:28→20:48)
[2017-03-11] MEDS: GABAPENTIN 100 MG CAP PO SCH (08:28)
[2017-03-11] MEDS: FAMOTIDINE 20 MG TAB PO SCH (08:29)
[2017-03-11] MEDS: CITALOPRAM 20 MG TAB PO SCH (08:29)
--- NOTE | 2017-03-11 08:30 | NUR ---
DUE MEDICATIONS GIVEN, PT TOLERATED WELL, CALL LIGHT WITHIN REACH.
--- NOTE | 2017-03-11 08:37 | NUR ---
PATIENT HAS BEEN SCREENED AND CATEGORIZED HIGH NUTRITION RISK. PATIENT WILL BE SEEN WITHIN 1-2 DAYS OF ADMISSION. 03/11/17-03/12/[address]
[2017-03-11] MEDS ORDERED: DOCUSATE SODIUM 100 MG PO SCH (09:00)
--- NOTE | 2017-03-11 09:38 | NUR ---
PATIENT IS COMPLAINING OF A LOWER BACK PAIN AT THIS TIME, WILL MEDICATE WITH PRN PAIN MEDICATION.
[2017-03-11] MEDS: HYDROcodone/APAP 10/325 MG 1 TAB TAB PO PRN ×2 (09:39→20:49)
--- NOTE | 2017-03-11 10:45 | NUR ---
PATIENT IS SLEEPING IN BED AT THIS TIME, CALL LIGHT IS WITHIN REACH.
[2017-03-11 11:57] VITALS: BP 103/48
--- NOTE | 2017-03-11 12:35 | NUR ---
PT REPOSITIONED IN BED, SACRAL AREA CLEAN WITH MILD SOAP AND WATER, Z GUARD CREAM APPLY TO SACRAL AREA, ALL NEEDS MET AT THIS TIME, CALL LIGHT WITHIN REACH.
[2017-03-11] MEDS: MILD SOAP AND WATER TP SCH (13:17)
--- NOTE | 2017-03-11 14:04 | NUR ---
03/11/17 RD INITIAL ASSESSMENT COMPLETED PLEASE REFER TO NUTRITION ASSESSMENT UNDER CARE ACTIVITY FOR ESTIMATED NUTRITIONAL NEEDS. 1. CONTINUE MECHANICAL SOFT DIET 2. ADD VITAMIN C 250 MG/DAY FOR WOUND HEALING 3. RD TO FOLLOW UP WITHIN 2-3 DAYS; HIGH RISK RUTH MCCLENDON, ROXANE
--- NOTE | 2017-03-11 14:30 | NUR ---
PATIENT IS SLEEPING IN BED AT THIS TIME, CALL LIGHT WITHIN REACH.
[2017-03-11 16:00] VITALS: BP 113/49
--- NOTE | 2017-03-11 17:19 | NUR ---
PT SLEEPING IN BED AT THIS TIME, CALL LIGHT WITHIN REACH.
--- NOTE | 2017-03-11 19:14 | NUR ---
ENDORSED PT TO FOOT ORTHOPEDIST NURSE FOR CONTINUITY OF CARE, PT STABLE AT THIS TIME.
--- NOTE | 2017-03-11 19:15 | NUR ---
RECEIVED REPORT FROM DAY RN FOR CONTINUITY OF CARE. PATIENT IS ALERT AND ORIENTED X3, DISCUSSED PLAN OF CARE WITH PATIENT. SHIFT ASSESSMENT DONE, VITAL SIGNS STABLE. NO RESPIRATORY DISTRESS NOTED ON ROOM AIR. IV TO TL WRIST PATENT AND INFUSING FLUIDS WELL. SACRAL WOUND NOTED. TORO CATHETER IN PLACE DRAINING TO GRAVITY. SAFETY PRECAUTIONS CHECKED, FALL PREVENTION IN PLACE, CALL LIGHT WITHIN REACH, WILL CONTINUE TO MONITOR.
[2017-03-11 20:00] VITALS: BP 123/61
[2017-03-11] MEDS: predniSONE 5 MG TAB PO SCH (20:47)
--- NOTE | 2017-03-11 20:48 | NUR ---
DUE MEDICATIONS ADMINISTERED, TOLERATED WELL. PATIENT RESTING IN BED C/O PAIN, MEDICATED PER MD ORDER, VITAL SIGNS STABLE. CALL LIGHT WITHIN REACH, WILL CONTINUE TO MONITOR.
--- NOTE | 2017-03-11 22:12 | NUR ---
PATIENT ASLEEP AT THIS TIME, NO DISTRESS OR DISCOMFORT NOTED. SAFETY MEASURES ENFORCED, WILL CONTINUE TO MONITOR.
[2017-03-12] VITALS: BP 121/52
--- NOTE | 2017-03-12 00:10 | NUR ---
VITAL SIGNS STABLE, PATIENT RESTING IN BED NO DISTRESS OR DISCOMFORT NOTED. WILL CONTINUE TO MONITOR.
[2017-03-12] MEDS: Z-GUARD PASTE TP SCH ×2 (01:16→16:40)
[2017-03-12] MEDS: MILD SOAP AND WATER TP SCH ×2 (01:16→13:00)
[2017-03-12] MEDS: HYDROcodone/APAP 10/325 MG 1 TAB TAB PO PRN ×4 (02:05→22:38)
--- NOTE | 2017-03-12 02:05 | NUR ---
PT AWAKE IN BED, C/O PAIN STATES SHE ONLY WANTS THE PAIN PILL, MEDICATED PER MD ORDER. IF DRESSING CHANGED, IVF INFUSING WELL. WILL CONTINUE TO MONITOR.
[2017-03-12] MEDS: NACL 0.9% 1,000 ML IV SCH ×2 (03:48→13:56)
[2017-03-12 04:00] VITALS: BP 138/55
--- NOTE | 2017-03-12 04:30 | NUR ---
VITAL SIGNS STABLE, PATIENT DENIES PAIN AT THIS TIME. CALL LIGHT WITHIN REACH, WILL CONTINUE TO MONITOR.
--- NOTE | 2017-03-12 06:15 | NUR ---
REPOSITIONED PATIENT AND CLEANED SACRAL WOUND. SAFETY PRECAUTIONS ENFORCED, CALL LIGHT WITHIN REACH.
[2017-03-12 06:45] LABS: BASOPHILS % (AUTO) 0.1 % (0.0-2.0); EOSINOPHILS # (AUTO) 0.2 K/uL (0-0.4); EOSINOPHILS % (AUTO) 1.4 % (0.0-4.0); HEMATOCRIT 27.5 % (36-48); HEMOGLOBIN 9.2 g/dL (12.0-16.0); LYMPHOCYTES # (AUTO) 0.4 K/uL (2.5-16.5); LYMPHOCYTES % (AUTO) 3.2 % (20.5-51.1); MEAN CORPUSCULAR HEMOGLOBIN 31 pg (27-31); MEAN CORPUSCULAR HGB CONC 34 g/dL (33-37); MEAN CORPUSCULAR VOLUME 91 fL (80-94); MONOCYTES # (AUTO) 0.6 K/uL (0.8-1.0); MONOCYTES % (AUTO) 4.7 % (1.7-9.3); NEUTROPHILS # (AUTO) 11.3 K/uL (1.8-7.7); NEUTROPHILS % (AUTO) 90.6 % (42.2-75.2); PLATELET COUNT (AUTO) 349 K/uL (140-450); RED BLOOD CELL COUNT(AUTO) 3.01 MIL/uL (4.20-5.40)
[2017-03-12 06:55] LABS: ANION GAP 13.2 (8-16); CARBON DIOXIDE 20.1 mmol/L (21-32); CHLORIDE 99 mmol/L (98-107); CREATININE 0.6 mg/dL (0.6-1.3); GLUCOSE 57 mg/dL (74-106); POTASSIUM 4.3 mmol/L (3.5-5.1); SODIUM SERUM 128 mmol/L (136-145); UREA NITROGEN, BLOOD 13 mg/dL (7-18)
--- NOTE | 2017-03-12 07:12 | NUR ---
RECEIVED REPORT FROM FHA UNDERWRITER RN. PATIENT IN STABLE CONDITION, NO SIGNS AND SYMPTOMS OF ACUTE DISTRESS NOTED AT THIS TIME.
--- NOTE | 2017-03-12 07:12 | NUR ---
ENDORSED PATIENT TO DAY RN FOR CONTINUITY OF CARE, PATIENT IS IN STABLE CONDITION.
[2017-03-12] MEDS ORDERED: DEXTROSE 50% 50 ML SYR IVP PRN (07:15)
[2017-03-12] MEDS: BLOOD GLUCOSE MONITORING 1 DEV DEV FS SCH ×4 (07:30→21:39)
[2017-03-12] MEDS ORDERED: INSULIN LISPRO SLIDING SCALE 100 UNITS/ML VIAL SUBQ PRN (07:35)
--- NOTE | 2017-03-12 07:40 | NUR ---
PATIENT BS 51, NO SIGNS AND SYMPTOMS OF DISTRESS. FAMILY AT BEDSIDE FEEDING PATIENT BREAKFAST. WILL RECHECK SUGAR POST MEAL.
[2017-03-12 07:49] LABS: WHITE BLOOD COUNT (AUTO) 12.5 K/uL (4.8-10.8)
[2017-03-12 08:00] VITALS: BP 134/59
--- NOTE | 2017-03-12 08:10 | NUR ---
PATIENT ALERT, AWAKE, AND ORIENTED X2. BS 143 AT THIS TIME. NO SIGNS AND SYMPTOMS OF DISTRESS NOTED AT THIS TIME. WILL CONTINUE TO MONITOR. FAMILY AT BEDSIDE.
[2017-03-12] MEDS: DOCUSATE SODIUM 100 MG GELCAP PO SCH ×2 (08:39→21:38)
[2017-03-12] MEDS: GABAPENTIN 100 MG CAP PO SCH (08:39)
[2017-03-12] MEDS: CITALOPRAM 20 MG TAB PO SCH (08:40)
[2017-03-12] MEDS: FAMOTIDINE 20 MG TAB PO SCH (08:40)
--- NOTE | 2017-03-12 09:15 | NUR ---
WOUND CARE EVALUATION NOTE: REASON FOR EVALUATION: SACROCOCCYX WOUND COMPLETE SKIN ASSESSMENT DONE ON THIS 81Y/O FEMALE PATIENT FROM HOME TO [facility], WITH INITIAL DIAGNOSIS OF ALOC AND FEVER. PAST MEDICAL HISTORY INCLUDE GERD,CHRONIC PAIN, COMPRESSION FX,OSTEOPOROSIS AND CHRONIC INDWELLING TORO CATHETER RT OBSTRUCTIVE UROPATHY. ALL ABOVE INFORMATION WAS OBTAINED FROM THE ADMISSION H&P. LABS ARE WBC 12.1, H/H 9.2/27.5, GLUCOSE 147, ALBUMIN 2.7. CURRENT MEDS INCLUDE LEVOFLOXACIN, CITALOPRAM, GABAPENTIN AND HYDROCODONE. PATIENT IS AWAKE, CONFUSED WITH PRIMARY CARE AT BED SIDE. SKIN WARM TO TOUCH WNL, TOENAILS ARE SLIGHTLY THICKENED, NO EDEMA, WITH FINE HAIR GROWTH AND BILATERAL PEDAL PULSES PRESENT. FC 16FR PATENT AND INTACT TO CLEAR YELLOW URINE IN MODERATE AMOUNT. PATIENT IS INCONTINENT OF BOWEL. NEEDS MAX ASSISTANCE IN TURNING AND REPOSITIONING. INITIAL PLAN OF CARE AND PRESSURE PREVENTIVE MEASURES DISCUSSED WITH PRIMARY LEAD TECHNICAL ARCHITECT AND PRIMARY NURSE. INTEGUMENTARY: SACRALCOCCYX - STAGE I PRESSUER ULCER, 4X3 CM SOFT AND WARM TO TOUCH LEFT AND RIGHT BUTTOCKS- MAD,SKIN INTACT RIGHT HEEL - BLANCHABLE REDNESS LEFT HEEL - BLANCHABLE REDNESS RECOMMENDATIONS: -SACROCOCCYX : CLEANSE WITH NS, PAT DRY , APPLY OPTIFORM Q3 DAYS AND PRN IF SOILING -LEFT AND RIGHT BUTTOCKS: CLEANSE WITH MILD SOAP AND WATER, PAT DRY, APPLY HYDRAGUARD BIDWC AND PRN WITH SOILING. LEAVE OPEN TO AIR -TURN AND REPOSITION PATIENT Q2H TO LEFT AND RIGHT SIDE ONLY TO OFFLOAD SACRALCOCCYX -ASSESS AND MONITOR SKIN CONDITION DURING POSITION CHANGE, PLEASE PAY PARTICULAR ATTENTION TO SACRALCOCCYX, BUTTOCKS AND HEELS -OFFLOAD BILATERAL HEELS BY PLACING PILLOWS UNDER CALVES AT ALL TIMES, UNLESS OTHERWISE CONTRAINDICATED -KEEP SKIN CLEAN AND DRY AT ALL TIMES. -PRESSURE REDISTRIBUTION SURFACE THERAPY. -RD CONSULT RECOMMENDATIONS DISCUSSED WITH PRIMARY RN. WILL FOLLOW UP PATIENT Q7-10 DAYS AND PRN. PLEASE CONTACT WOUND CARE NURSE FOR ANY CONCERNS, QUESTIONS AND CHANGES IN SKIN CONDITION.
--- NOTE | 2017-03-12 09:45 | NUR ---
SS NOTE: I SPOKE WITH PT AND PT'S NIECE, RALPH BEDSIDE WITH RN REA TO PROVIDE LITHUANIAN TRANSLATION TO PT REGARDING POSSIBLE SNF PLACEMENT FOR PT AND IV ABX. PT AND RALPH STATED THAT THEY ARE IN AGREEMENT WITH SHORT TERM SNF PLACEMENT. RALPH STATED THAT SHE WILL TOUR [facility] AND [facility]. I ALSO PROVIDED PT AND RALPH WITH ADVANCE DIRECTIVE INFORMATION BUT PT DID NOT SEEM LIKE SHE WAS ABLE TO COMPREHEND ALL THE INFORMATION. I INFORMED RALPH THAT PT WILL NEED TO BE COMPLETELY ALERT AND ORIENTED IN ORDER FOR A MEDICAL ADVANCE DIRECTIVE TO BE VALID, SHE VERBALIZED UNDERSTANDING.
[2017-03-12 12:00] VITALS: BP 150/66
[2017-03-12] MEDS ORDERED: FOAM DRESSING TP PRN (12:00)
[2017-03-12] MEDS ORDERED: HYDRAGUARD CREAM TP PRN (12:00)
[2017-03-12] MEDS: HYDRAGUARD CREAM TP SCH (13:00)
[2017-03-12 16:00] VITALS: BP 153/57
--- NOTE | 2017-03-12 16:50 | NUR ---
PATIENT STATED THAT SHE DOESN'T WANT THE PILLOW UNDER HER BACK, AND DOESN'T WANT PILLOW UNDER HE LEGS. EXPLAINED TO PATIENT BENEFITS OF TURNING, STILL REFUSING.
--- NOTE | 2017-03-12 19:11 | NUR ---
ENDORSED PT TO WATER SOFTENER INSTALLER RN. FAMILY AT BEDSIDE, PATIENT IS STABLE.
--- NOTE | 2017-03-12 19:12 | NUR ---
RECD. RESTING IN BED, AWAKE, A/OX3, RESPIRATION EVEN AND UNLABORED. IV OF NS AT 90 ML/HR INFUSING, LEFT WRIST G22. OCCASIONAL UNPRODUCTIVE COUGHING NOTED. 02 SA T- 96% ON ROOM AIR. F/C DRAINING CLEAR YELLOW URINE. ON BILATERAL LEG SEQUENTIALS. DENIES PAIN 0/10. PLAN OF CARE FOR THE SHIFT DISCUSSED WITH PATIENT AND DAUGHTER, VERBALIZED UNDERSTANDING.
--- NOTE | 2017-03-12 19:30 | NUR ---
Patient's Plan of Care was discussed and reviewed with BUSINESS MANAGEMENT ASSOCIATE: BEKA
[2017-03-12 20:00] VITALS: BP 141/58
[2017-03-12] MEDS ORDERED: LEVOFLOXACIN 750 MG/D5W PREMIX 150 ML IV SCH (21:00)
[2017-03-12] MEDS: predniSONE 5 MG TAB PO SCH (21:39)
[2017-03-12] MEDS ORDERED: ALBUTEROL SULFATE/IPRATROPIU 3 ML SOL IH PRN (22:30)
[2017-03-12] MEDS: LORazepam 0.5 MG TAB PO PRN (23:41)
[2017-03-13] VITALS: BP 123/63
[2017-03-13] MEDS: Z-GUARD PASTE TP SCH ×2 (01:17→13:00)
[2017-03-13] MEDS: MILD SOAP AND WATER TP SCH ×2 (01:18→13:00)
[2017-03-13] MEDS: NACL 0.9% 1,000 ML IV SCH ×4 (01:18→23:03)
[2017-03-13] MEDS: HYDRAGUARD CREAM TP SCH ×2 (01:18→13:00)
[2017-03-13 04:00] VITALS: BP 129/65
[2017-03-13] MEDS: HYDROcodone/APAP 10/325 MG 1 TAB TAB PO PRN ×4 (04:27→23:04)
[2017-03-13 06:37] LABS: BASOPHILS % (AUTO) 0.2 % (0.0-2.0); EOSINOPHILS # (AUTO) 0.3 K/uL (0-0.4); EOSINOPHILS % (AUTO) 2.2 % (0.0-4.0); HEMATOCRIT 26.9 % (36-48); HEMOGLOBIN 8.8 g/dL (12.0-16.0); LYMPHOCYTES # (AUTO) 0.4 K/uL (2.5-16.5); LYMPHOCYTES % (AUTO) 3.3 % (20.5-51.1); MEAN CORPUSCULAR HEMOGLOBIN 30 pg (27-31); MEAN CORPUSCULAR HGB CONC 33 g/dL (33-37); MEAN CORPUSCULAR VOLUME 92 fL (80-94); MONOCYTES # (AUTO) 0.7 K/uL (0.8-1.0); MONOCYTES % (AUTO) 5.5 % (1.7-9.3); NEUTROPHILS # (AUTO) 10.5 K/uL (1.8-7.7); NEUTROPHILS % (AUTO) 88.8 % (42.2-75.2); PLATELET COUNT (AUTO) 392 K/uL (140-450); RED BLOOD CELL COUNT(AUTO) 2.91 MIL/uL (4.20-5.40); RED CELL DISTRIBUTION WIDTH 14.4 % (11.6-13.7)
[2017-03-13 07:07] LABS: ANION GAP 10.8 (8-16); CARBON DIOXIDE 21.9 mmol/L (21-32); CHLORIDE 101 mmol/L (98-107); CREATININE 0.6 mg/dL (0.6-1.3); GLUCOSE 92 mg/dL (74-106); POTASSIUM 3.7 mmol/L (3.5-5.1); SODIUM SERUM 130 mmol/L (136-145); UREA NITROGEN, BLOOD 5 mg/dL (7-18)
--- NOTE | 2017-03-13 07:30 | NUR ---
RECEIVED REPORT FROM MOTHER HELPER NURSE AT PT BEDSIDE. PT IS AAOX3, ON ROOM AIR, WITH A SACRAL PRESSURE ULCER (COVERED), TORO CATHETER IN PLACE WITH CLEAR YELLOW URINE. 22 GAUGE IV ON LEFT WRIST WITH IV FLUIDS INFUSING AT 90ML/HR. PT ON RESIDENT PHYSICIAN IN RADIOLOGY, NO C/O PAIN. DISCUSSED PLAN OF CARE WITH PT, PT VERBALIZED UNDERSTANDING. PT IS STABLE, WITHOUT SIGNS OF DISTRESS. BED IN LOW POSITION, CALL LIGHT WITHIN REACH. WILL CONTINUE TO MONITOR.
[2017-03-13] MEDS: BLOOD GLUCOSE MONITORING 1 DEV DEV FS SCH ×4 (07:40→20:04)
[2017-03-13 07:45] LABS: WHITE BLOOD COUNT (AUTO) 11.9 K/uL (4.8-10.8)
[2017-03-13 08:00] VITALS: BP 139/63
--- NOTE | 2017-03-13 08:00 | NUR ---
DATA MIGRATION LEAD HELPED PT HAVE BREAKFAST. PT TOLERATED WELL. CALL LIGHT WITHIN REACH. WILL CONTINUE TO MONITOR.
[2017-03-13] MEDS: DOCUSATE SODIUM 100 MG GELCAP PO SCH ×2 (08:42→20:32)
[2017-03-13] MEDS: FAMOTIDINE 20 MG TAB PO SCH (08:42)
[2017-03-13] MEDS: GABAPENTIN 100 MG CAP PO SCH (08:42)
[2017-03-13] MEDS: ASCORBIC ACID 500 MG TAB PO SCH (08:42)
[2017-03-13] MEDS: CITALOPRAM 20 MG TAB PO SCH (08:43)
--- NOTE | 2017-03-13 08:50 | NUR ---
ADMINISTERED SCHEDULED MORNING MEDS. PT SWALLOWED ONE BY ONE. PT TOLERATED WELL. METAL MINER WITH PT ASSISTING WITH BREAKFAST. PT IS STABLE, WITHOUT SIGNS OF DISTRESS. BED IN LOW POSITION, CALL LIGHT WITHIN REACH. WILL CONTINUE TO MONITOR.
[2017-03-13] MEDS: CLINICAL MONITORING MC SCH (09:00)
--- NOTE | 2017-03-13 09:15 | NUR ---
Social Service Note: I called and spoke with patient's niece Latoya Hoyt (Bahraini speaking) regarding snf placement. She stated she did not have time to tour snfs yesterday because she had a doctor's appt. However, she told me she will tour [facility] and [facility] Hester this morning and will call me back within an hour to provide with her snf preference. I faxed inquiries to [facility] and Priyanka Hester, patient case manager Mindy agustin.
--- NOTE | 2017-03-13 10:27 | NUR ---
NORCO WAS GIVEN TO PT FOR PAIN. PT TOLERATED WELL. REPOSITIONED PT. PT IS STABLE, WITHOUT SIGNS OF DISTRESS. BED IN LOW POSITION, CALL LIGHT WITHIN REACH. WILL CONTINUE TO MONITOR.
[2017-03-13 12:00] VITALS: BP 122/52
--- NOTE | 2017-03-13 12:30 | NUR ---
ROOM MANAGER ASSISTED PT WITH LUNCH. PT TOLERATED WELL. CALL LIGHT WITHIN REACH. WILL CONTINUE TO MONITOR.
--- NOTE | 2017-03-13 13:00 | NUR ---
PERFORMED WOUND CARE ON SACRAL PRESSURE ULCER. PT TOLERATED WELL.TURNED AND REPOSITIONED PT WITH HEELS FLOATING ON PILLOW. PT IS STABLE, WITHOUT SIGNS OF DISTRESS. BED IN LOW POSITION, CALL LIGHT WITHIN REACH. WILL CONTINUE TO MONITOR.
--- NOTE | 2017-03-13 13:30 | NUR ---
ASSISTED PT WITH FEEDING SOUP (SOUP REQUESTED BY PATIENT). PT ATE ABOUT HALF THE BOWL OF SOUP AND SAID SHE WAS DONE. PT TOLERATED WELL. PT IS STABLE, WITHOUT SIGNS OF DISTRESS. BED IN LOW POSITION, CALL LIGHT WITHIN REACH. WILL CONTINUE TO MONITOR.
--- NOTE | 2017-03-13 14:26 | NUR ---
Social Service Note: Per patient's niece Latoya Hoyt (Malay speaking), her snf choice is [facility] . I faxed inquiry to [facility]. Per Jeremy from [facility], they will have a bed available tomorrow for patient, room 32B, accepting physician is Kishan Hollingsworth.
[2017-03-13] MEDS ORDERED: LEVOFLOXACIN 750 MG/D5W PREMIX 150 ML IV SCH ×2 (14:32→21:00)
--- NOTE | 2017-03-13 15:30 | NUR ---
PT SLEEPING, STABLE, WITHOUT SIGNS OF DISTRESS. BED IN LOW POSITION, CALL LIGHT WITHIN REACH. WILL CONTINUE TO MONITOR.
[2017-03-13 16:00] VITALS: BP 120/43
--- NOTE | 2017-03-13 18:27 | NUR ---
SPOKE WITH DR BABIN TO INFORM HIM ABOUT URINE CULTURE RESULTS. NO ORDERS RECEIVED FROM
[2017-03-13] MEDS ORDERED: ALBUTEROL SULFATE/IPRATROPIU 3 ML SOL IH PRN (18:30)
--- NOTE | 2017-03-13 19:26 | NUR ---
ENDORSED PT TO QUILL CLEANING MACHINE OPERATOR NURSE FOR CONTINUITY OF CARE. PT IN STABLE CONDITION.
--- NOTE | 2017-03-13 19:30 | NUR ---
RECEIVED REPORTS FROM DAY RN, PATIENT SLEEPING IN BED, NO S/S OF ACUTE DISTRESS NOTED, EASY TO AROUSE. RESPIRATION EVEN AND UNLABORED, IV PATENT AND INTACT, INFUSING NS AT 90ML/HR, TORO IS IN PLACE, DRAINING URINE BY GRAVITY. POSITIONED PATIENT TO HER COMFORTABLE POSITION WITH THE DAY RN, CALL LIGHT WITHIN REACH, SAFETY MEASURE ENSURED, WILL CONTINUE TO MONITOR.
[2017-03-13 20:00] VITALS: BP 103/44
[2017-03-13] MEDS: predniSONE 5 MG TAB PO SCH (20:32)
--- NOTE | 2017-03-13 20:38 | NUR ---
PM MEDICATION GIVEN, LEVAQUIN STARTED, PATIENT TOLERATED WELL. WILL CONTINUE TO MONITOR.
--- NOTE | 2017-03-13 22:10 | NUR ---
DAUGHTER IS AT BEDSIDE, REPOSITIONED PATIENT TO HER COMFORTABLE POSITION, OFFERED WATER TO THE PATIENT WELL. CALL LIGHT WITHIN REACH, ALL NEEDS ATTENDED, SAFETY MEASURE ENSURED, WILL CONTINUE TO MONITOR.
[2017-03-14] VITALS: BP 133/63
[2017-03-14] MEDS: HYDRAGUARD CREAM TP SCH ×2 (00:08→14:03)
[2017-03-14] MEDS: MILD SOAP AND WATER TP SCH ×2 (00:08→13:00)
[2017-03-14] MEDS: Z-GUARD PASTE TP SCH ×2 (00:08→14:04)
[2017-03-14] MEDS: LORazepam 0.5 MG TAB PO PRN (00:18)
--- NOTE | 2017-03-14 00:21 | NUR ---
Z-GUARD APPLIED TO THE SACROCOCCYGEAL AREA, AND HYDRAGUARD APPLIED TO RIGHT AND LEFT BUTTOCKS. PATIENT TOLERATED WELL, POSITIONED PATIENT TO HER COMFORTABLE POSITION WITH HEARING DOG TRAINER. PATIENT REQUESTED SLEEPING PILL, ATIVAN 0.5MG PO GIVEN ORDERED.
--- NOTE | 2017-03-14 01:14 | NUR ---
PATIENT ASLEEP IN BED, NO S/S OF ACUTE DISTRESS NOTED, RESPIRATION EVEN AND UNLABORED, CALL LIGHT WITHIN REACH, SAFETY MEASURE ENSURED, WILL CONTINUE TO MONITOR
--- NOTE | 2017-03-14 03:10 | NUR ---
REPOSITIONED PATIENT TO HER COMFORTABLE POSITION WITH THE COST ESTIMATING CLERK, PATIENT RESTING IN BED, NO S/S OF ACUTE DISTRESS NOTED, RESPIRATION EVEN AND UNLABORED, CALL LIGHT WITHIN REACH, SAFETY MEASURE ENSURED, WILL CONTINUE TO MONITOR.
[2017-03-14 04:00] VITALS: BP 132/59
--- NOTE | 2017-03-14 05:17 | NUR ---
REPOSITIONED PATIENT WITH THE CLINICAL DIETITIAN, PATIENT REQUESTED PAIN MEDICATION AND STATED BACK PAIN 6/10. WILL GIVE PAIN MEDICATION ORDERED.
[2017-03-14] MEDS: HYDROcodone/APAP 10/325 MG 1 TAB TAB PO PRN ×2 (05:23→12:17)
[2017-03-14] MEDS: BLOOD GLUCOSE MONITORING 1 DEV DEV FS SCH ×2 (06:39→12:20)
--- NOTE | 2017-03-14 07:38 | NUR ---
RECEIVED REPORT FROM SLAB GRINDER RN. PATIENT STABLE AT THIS TIME.
--- NOTE | 2017-03-14 07:38 | NUR ---
ENDORSED PLAN OF CARE TO DAY RN. PATIENT IS IN STABLE CONDITION.
[2017-03-14 08:00] VITALS: BP 141/57
[2017-03-14] MEDS: CLINICAL MONITORING MC SCH (09:00)
[2017-03-14] MEDS: GABAPENTIN 100 MG CAP PO SCH (09:12)
[2017-03-14] MEDS: DOCUSATE SODIUM 100 MG GELCAP PO SCH (09:12)
[2017-03-14] MEDS: FAMOTIDINE 20 MG TAB PO SCH (09:13)
[2017-03-14] MEDS: CITALOPRAM 20 MG TAB PO SCH (09:13)
[2017-03-14] MEDS: ASCORBIC ACID 500 MG TAB PO SCH (09:13)
--- NOTE | 2017-03-14 09:30 | NUR ---
INFORMED PATIENT ABOUT DISCHARGE PLANS, THAT SHE WILL CONTINUE TO GET ANTIBIOTIC TREATMENT AND PHYSICAL THERAPY AT SNF. STATUS STILL PENDING ABOUT RM BEING READY. WILL CONTINUE TO UPDATE PATIENT. SHE VERBALIZED UNDERSTANDING.
--- NOTE | 2017-03-14 11:30 | NUR ---
PATIENT BS 81, NO SIGNS AND SYMPTOMS OF DISTRESS NOTED AT THIS TIME.
[2017-03-14 12:00] VITALS: BP 142/70
--- NOTE | 2017-03-14 12:42 | NUR ---
03/14/17 RD FOLLOW UP COMPLETED REFER TO NUTRITION PROGRESS NOTE UNDER CARE ACTIVITY FOR ESTIMATED NEEDS. RD RECOMMENDATIONS: 1. CONTINUE MECHANICAL SOFT DIET TOLERATED. 2. CONTINUE VITAMIN C FOR WOUND HEALING. 3. RD ADDED [facility] SHAKE TID TO PT MEALS. 4. RD TO FOLLOW UP WITHIN 2-3 DAYS; HIGH RISK RIOS OLIVA RD
--- NOTE | 2017-03-14 13:00 | NUR ---
REMOVED CURRENT FOAM DRESSING TO BE ABLE TO TAKE PICTURES OF WOUND FOR DISCHARGE. RINSED AREA WITH MILD SOAP AND WATER, AFTER PHOTOGRAPHS APPLIED Z-GUARD TO SACROCOCCYGEAL AREA, HYDROGUARD TO BILATERAL BUTTOCKS AND PERINEAL AREA. COVERED AREA WITH FOAM DRESSING. PATIENT TOLERATED WELL.
[2017-03-14] MEDS ORDERED: CITA20TA15 PO (14:24)
[2017-03-14] MEDS ORDERED: DOCU-67 PO (14:25)
[2017-03-14] MEDS ORDERED: LEVO750T51 IV (14:27)
[2017-03-14] MEDS ORDERED: GABA100C PO (14:27)
[2017-03-14] MEDS ORDERED: FAMO-90 PO (14:28)
[2017-03-14] MEDS ORDERED: ASCO500T45 PO (14:28)
--- NOTE | 2017-03-14 14:33 | NUR ---
PT NOTES SPOKE W/ RN "KENYON" FOR CLEARANCE REGARDING PT TX ([id number]). RN STATED PATIENT AT THIS TIME IS HAVING WOUND CARE & PATIENT WILL BE D/C FROM HOSPITAL TO [facility] AT 1500. PRIMARY THERAPIST WAS MADE AWARE. PVE Addendum: 03/14/17 at 1530 by Katie De La Torre PT PHYSICAL THERAPY CO-SIGN The Physical Therapy Progress Notes documented by Credit Cashier have been reviewed. Reviewed/Co-Signed by: Katie De La Torre PT Documentation Done by:KATIUSKA JIMENEZ PTA
--- NOTE | 2017-03-14 14:50 | NUR ---
CALLED [facility] TO GIVE REPORT TO RECEIVING RNJOSHUA.
--- NOTE | 2017-03-14 15:15 | NUR ---
PATIENT UNABLE TO SIGN DISCHARGE PAPERS, HER NIECE WAS HERE EARLIER AND WAS MADE AWARE OF THE DISCHARGE TO SNF.
--- NOTE | 2017-03-14 15:15 | NUR ---
GAVE REPORT TO [facility], FOR PATIENT TRANSPORT TO [facility].
[2017-03-15] MEDS ORDERED: FOAM DRESSING TP SCH (09:00)
== END 2017-03-14 15:15 | DRG 871 ==
LOC: MED 00:51 → MTU 04:45
PROVIDERS: ADMIT Family Medicine; ATTEND Family Medicine
DX: A41.9 Sepsis, unspecified organism (principal); G93.41 Metabolic encephalopathy; E44.0 Moderate protein-calorie malnutrition; J18.9 Pneumonia, unspecified organism; N39.0 Urinary tract infection, site not specified; D64.9 Anemia, unspecified; N13.9 Obstructive and reflux uropathy, unspecified; E87.1 Hypo-osmolality and hyponatremia; Z68.1 Body mass index [BMI] 19.9 or less, adult; M48.54XA Collapsed vertebra, not elsewhere classified, thoracic region, initial encounter for fracture; M81.0 Age-related osteoporosis without current pathological fracture; K21.9 Gastro-esophageal reflux disease without esophagitis; G89.29 Other chronic pain; Z96.641 Presence of right artificial hip joint; R33.9 Retention of urine, unspecified; Z88.5 Allergy status to narcotic agent; Z88.6 Allergy status to analgesic agent
CPT/HCPCS: 36415; 51702; 70450; 71010; 80048; 80053; 82948; 83605; 85025; 87040; 87081; 87086; 93005; 94640; 96365; 97110; 97116; 97140; 97530; 99285; J1815; J1956; J7030; J7512; J7620; Q0092

== ENCOUNTER 2018-07-27 09:50 | Inpatient (IN) | payer OTHER ==
[~2018-07-27] VITALS: Ht 157.5 cm; Wt 63.0 kg
[~2018-07-27 09:50] MED LIST changes: +ACET-787 PO; +ACET-9529 PO; +ASCO500T45 PO; +FAMO-90 PO; +FOS70 PO; -HYDR-4452 PO; -ROC2I IV
--- NOTE | 2018-07-27 09:50 | NUR ---
PATIENT TO BED 5 BY EMS AT THIS TIME.
[2018-07-27 09:55] VITALS: BP 123/45
--- NOTE | 2018-07-27 10:00 | NUR ---
83 YO FEMALE BIB EMS FROM [facility] FOR VOMITNG. PER EMR PT HAD TEMP 101 GOT TYLENOL 650 MG THEN TEMP 99. PT RETAINED TORO'S CATH FROM [facility]. PATIENT STATES PAIN OF 0/10 AT THIS TIME; VSS; PATIENT POSITIONED FOR COMFORT; HOB ELEVATED; BEDRAILS UP X2; BED DOWN. ER MD MADE AWARE OF PT STATUS.
[2018-07-27] MEDS ORDERED: LAC PO (10:20)
[2018-07-27] MEDS ORDERED: FERR-252 PO (10:20)
[2018-07-27] MEDS ORDERED: ALEN70TA1 PO (10:20)
[2018-07-27] MEDS ORDERED: MELA5TAB6 PO (10:20)
[2018-07-27] MEDS ORDERED: CRAN450C PO (10:20)
[2018-07-27] MEDS ORDERED: ASCO500T45 PO (10:20)
--- NOTE | 2018-07-27 11:00 | NUR ---
Patient being evaluated by physician at bedside.
[2018-07-27] MEDS ORDERED: NACL 0.9% 500 ML IV SCH (11:04)
[2018-07-27 11:21] LABS: BASOPHILS % (AUTO) 0.2 % (0.0-2.0); EOSINOPHILS % (AUTO) 0.3 % (0.0-4.0); HEMATOCRIT 28.6 % (36-48); HEMOGLOBIN 9.3 g/dL (12.0-16.0); LYMPHOCYTES # (AUTO) 0.6 K/uL (2.5-16.5); LYMPHOCYTES % (AUTO) 6.1 % (20.5-51.1); MEAN CORPUSCULAR HEMOGLOBIN 31 pg (27-31); MEAN CORPUSCULAR HGB CONC 33 g/dL (33-37); MEAN CORPUSCULAR VOLUME 93.5 fL (80-94); MONOCYTES % (AUTO) 10.1 % (1.7-9.3); NEUTROPHILS % (AUTO) 83.3 % (42.2-75.2); PLATELET COUNT (AUTO) 238 K/uL (140-450); RED BLOOD CELL COUNT(AUTO) 3.05 MIL/uL (4.20-5.40); RED CELL DISTRIBUTION WIDTH 13.9 % (11.6-13.7); WHITE BLOOD COUNT (AUTO) 9.6 K/uL (4.8-10.8)
[2018-07-27 11:40] LABS: ALBUMIN 2.6 g/dL (3.4-5.0); ANION GAP 10.3 (8-16); ASPARTATE AMINOTRANSFERASE 21 U/L (15-37); CARBON DIOXIDE 26.4 mmol/L (21-32); CHLORIDE 88 mmol/L (98-107); CREATININE 0.6 mg/dL (0.6-1.3); GLUCOSE 113 mg/dL (74-106); POTASSIUM 4.7 mmol/L (3.5-5.1); TOTAL BILIRUBIN 0.4 mg/dL (0.0-1.0); UREA NITROGEN, BLOOD 10 mg/dL (7-18)
[2018-07-27 11:42] LABS: SODIUM SERUM 120 mmol/L (136-145)
[2018-07-27 11:59] LABS: APPEARANCE,URINE CLEAR (CLEAR); BILIRUBIN,URINE NEGATIVE (NEGATIVE); BLOOD, URINE NEGATIVE (NEGATIVE); LEUKOCYTE ESTERASE ,URINE NEGATIVE (NEGATIVE); NITRITE, URINE POSITIVE (NEGATIVE); UGLUCOSE NEGATIVE (NEGATIVE)
[2018-07-27 12:04] LABS: COLOR,URINE STRAW (YELLOW)
[2018-07-27 12:07] LABS: RBC,URINE NONE SEEN /HPF (0-5); WBC,URINE NONE SEEN /HPF (0-5)
[2018-07-27 12:12] LABS: PROTHROMBIN TIME 11.3 secs (10.8-13.4)
[2018-07-27] MEDS ORDERED: ACETAMINOPHEN 325 MG TAB PO PRN (12:45)
[2018-07-27] MEDS ORDERED: ONDANSETRON 4 MG/2 ML VIAL IVP PRN (12:45)
--- NOTE | 2018-07-27 12:52 | NUR ---
C/O BODYACHE. NOTIFIED DR VEGAS
[2018-07-27] MEDS ORDERED: KETOROLAC 15 MG/ML VIAL IVP ONE (13:25)
--- NOTE | 2018-07-27 13:53 | NUR ---
Patient will be admitted to care of DR BABIN. Admited to MS. Will go to room 121B. Belongings list completed. Report to SHANNON PIERRE.
--- NOTE | 2018-07-27 13:55 | NUR ---
PATIENT ARRIVED VIA GURNEY, RECEIVED REPORT FROM WASHING MACHINE INSTALLER AT BEDSIDE FOR CONTINUITY OF CARE. GURDEEP ROSAS AT BEDSIDE. PATIENT AOX2, NEW ZEALANDER SPEAKING, FOLLOW COMMANDS. RESPIRATIONS EVEN AND UNLABORED ON ROOM AIR. IV SITE PATENT, INTACT, ASYMPTOMATIC AND SALINE LOCKED. PRESSURE INJURY ON SACRUM, PICTURE TAKEN. UPDATED BOARD. UPDATED PATIENT AND NIECE WITH PLAN OF CARE. TORO CATHETER NO LONGER IN PLACE. SAFETY PRECAUTIONS IN PLACE, BED IN LOWEST SETTING WITH BRAKES ON, CALL LIGHT WITHIN REACH, WILL CONTINUE TO MONITOR PATIENT.
[2018-07-27 14:00] VITALS: BP 111/52
--- NOTE | 2018-07-27 14:00 | NUR ---
URINE SAMPLE COLLECTED. URINE SAMPLE AND MRSA SCREENING BROUGHT TO LAB. WILL WAIT FOR RESULTS.
[2018-07-27] MEDS: metroNIDAZOLE 500 MG/NS PREMIX 100 ML IV SCH ×2 (14:34→22:03)
[2018-07-27] MEDS: NACL 0.9% 1,000 ML IV SCH (14:34)
[2018-07-27 14:43] LABS: FREE T4 (FREE THYROXINE) 1.23 ng/dL (0.76-1.46); PHOSPHORUS 3.3 mg/dL (2.5-4.9); THYROID STIMULATING HORMONE 2.62 uIU/mL (0.34-3.74)
--- NOTE | 2018-07-27 14:45 | NUR ---
PATIENT CHANGED AND REPOSITIONED FOR COMFORT AND TO OFFLOAD PRESSURE AREAS. WILL CONTINUE TO MONITOR PATIENT.
[2018-07-27] MEDS ORDERED: HYDRAGUARD CREAM TP SCH (15:05)
--- NOTE | 2018-07-27 15:05 | NUR ---
SPOKE TO DR. SAVAGE ABOUT PATIENT'S PAIN LEVEL, WOUND, MED RECON, AND REQUEST ABOUT EYE DROP WELL PATIENT'S TORO CATHETER NO LONGER IN PLACE. NEW ORDERS IN. WILL CONTINUE TO MONITOR PATIENT.
[2018-07-27 16:00] VITALS: BP 103/55
--- NOTE | 2018-07-27 16:00 | NUR ---
CALLED [facility] FOR [facility]. NO ANSWER. LEFT MESSAGE. WILL FOLLOW UP.
--- NOTE | 2018-07-27 16:30 | NUR ---
SPOKE TO DR. SAVAGE ABOUT PATIENT' REQUEST FOR EYE DROPS, NEW ORDERS IN, WILL GIVE ONCE VERIFIED BY PHARMACY. PATIENT AWARE. PATIENT CURRENTLY RESTING IN BED, NO COMPLAINTS AT THIS TIME OTHER THAN GENERALIZED PAIN. WILL CONTINUE TO MONITOR PATIENT.
[2018-07-27] MEDS ORDERED: COMMUNICATION ORDER MC PRN (16:35)
--- NOTE | 2018-07-27 17:50 | NUR ---
PATIENT C/O CHRONIC GENERALIZED PAIN, DR. BABIN IN TO SEE THE PATIENT, SPOKE TO HIM ABOUT PATIENT'S PAIN, DR. BABIN AWARE, WAITING FOR ORDER. PATIENT AND FAMILY MEMBERS AWARE.
--- NOTE | 2018-07-27 18:00 | NUR ---
TORO INSERTION ATTEMPTED, TORO NOT INSERTED. FAMILY MEMBERS JONAS AND NATHANAEL ROSAS AT BEDSIDE. DINNER IS HERE. PATIENT VERBALIZED THAT SHE WANTED TO EAT DINNER BEFORE ANOTHER ATTEMPT. RN VERBALIZED UNDERSTANDING. WILL ENDORSE TO SCRUBBING MACHINE OPERATOR RN.
--- NOTE | 2018-07-27 18:15 | NUR ---
PATIENT C/O CHRONIC GENERALIZED PAIN, SPOKE TO DR. DOOLEY, WAITING FOR ORDER. PATIENT AND FAMILY MEMBERS AWARE.
[2018-07-27] MEDS ORDERED: MIRT30TA PO (18:27)
[2018-07-27] MEDS ORDERED: MULT-153 PO (18:27)
[2018-07-27] MEDS ORDERED: POLYVINYL ALCOHOL 1.4% OP 15 ML SOL OP PRN (18:30)
[2018-07-27] MEDS ORDERED: HYDROcodone/APAP 7.5/325 MG 1 TAB PO PRN (18:40)
[2018-07-27] MEDS ORDERED: POLYVINYL ALCOHOL 1.4% OP 15 ML SOL BOTH EYES PRN (19:00)
--- NOTE | 2018-07-27 19:30 | NUR ---
ASSUMED CARE OF PATIENT, AWAKE, URDU-SPEAKING ONLY. FAMILY AT BEDSIDE. NO DISTRESS. COMPLAIN OF PAIN, REQUESTING NORCO AWAITING FOR PHARMACY VERIFICATION. CARE BOARD UPDATED.
--- NOTE | 2018-07-27 19:30 | NUR ---
REPORT GIVEN AT BEDSIDE TO MANAGER REIMBURSEMENT NURSE TAM FOR CONTINUITY OF CARE. PATIENT'S FAMILY AT BEDSIDE. PATIENT STILL REQUESTING FOR NORCO, NORCO STILL UNVERIFIED, PATIENT AND FAMILY AWARE. ENDORSED TO MANAGER REIMBURSEMENT NURSE. PATIENT IN STABLE CONDITION.
--- NOTE | 2018-07-27 20:00 | NUR ---
CARE BOARD UPDATED. PLAN OF CARE DISCUSSED WITH PATIENT AND FAMILY MEMBER, VERBALIZED UNDERSTANDING WELL. CALL LIGHT WITHIN REACH.
[2018-07-27] MEDS ORDERED: [UNRECOGNIZED DRUG - OTHER] PO SCH (21:00)
[2018-07-27] MEDS ORDERED: LACTOBACILLUS ACIDOPHILUS PO SCH (21:00)
[2018-07-27] MEDS ORDERED: NON-FORMULARY ITEM (Melatonin (Melatonin) 5 MG) PO SCH (21:00)
[2018-07-27] MEDS ORDERED: NON-FORMULARY ITEM (Cranberry Fruit Concentrate (Cranberry) 450 MG) PO SCH (21:00)
[2018-07-27] MEDS ORDERED: MIRTAZAPINE 15 MG TAB PO SCH (21:00)
[2018-07-27] MEDS ORDERED: PSYLLIUM 12.2 GM/PKT PO SCH (21:00)
[2018-07-27] MEDS ORDERED: LACTOBACILLUS RHAMNOSUS GG 1 EACH CAP PO SCH (22:00)
[2018-07-27] MEDS: predniSONE 5 MG TAB PO SCH (22:03)
[2018-07-27] MEDS: ASCORBIC ACID 500 MG TAB PO SCH (22:03)
[2018-07-27] MEDS: DOCUSATE SODIUM 100 MG GELCAP PO SCH (22:04)
--- NOTE | 2018-07-27 22:30 | NUR ---
INSERTED TORO CATHETER ORDERED. PERICARE DONE BY CARPENTER WOODEN TANK ERECTING. REPOSITIONED. CALL LIGHT WITHIN REACH.
[2018-07-27] MEDS ORDERED: cefTRIAXone 1,000 MG VIAL ONE (23:34)
--- NOTE | 2018-07-28 | NUR ---
REPOSITIONED. VITALS SIGNS STABLE. AFEBRILE. ASLEEP EASILY AROUSABLE. CALL LIGHT WITHIN REACH.
[2018-07-28 00:19] VITALS: BP 135/57
[2018-07-28] MEDS: NACL 0.9% 1,000 ML IV SCH ×2 (02:11→04:52)
[2018-07-28] MEDS: metroNIDAZOLE 500 MG/NS PREMIX 100 ML IV SCH ×3 (04:25→20:23)
--- NOTE | 2018-07-28 04:45 | NUR ---
REPOSITIONED. NO COMPLAINS. CALL LIGHT WITHIN REACH.
[2018-07-28 07:19] LABS: BASOPHILS % (AUTO) 0.3 % (0.0-2.0); EOSINOPHILS % (AUTO) 0.1 % (0.0-4.0); HEMATOCRIT 26.2 % (36-48); HEMOGLOBIN 8.6 g/dL (12.0-16.0); LYMPHOCYTES # (AUTO) 0.5 K/uL (2.5-16.5); LYMPHOCYTES % (AUTO) 7.6 % (20.5-51.1); MEAN CORPUSCULAR HEMOGLOBIN 31 pg (27-31); MEAN CORPUSCULAR HGB CONC 33 g/dL (33-37); MEAN CORPUSCULAR VOLUME 95.1 fL (80-94); MONOCYTES # (AUTO) 0.5 K/uL (0.8-1.0); MONOCYTES % (AUTO) 6.5 % (1.7-9.3); NEUTROPHILS % (AUTO) 85.5 % (42.2-75.2); PLATELET COUNT (AUTO) 236 K/uL (140-450); RED BLOOD CELL COUNT(AUTO) 2.76 MIL/uL (4.20-5.40); RED CELL DISTRIBUTION WIDTH 13.6 % (11.6-13.7)
--- NOTE | 2018-07-28 07:35 | NUR ---
ENDORSED CARE AT BEDSIDE WITH ROSA ELENA RN, PATIENT IN STABLE CONDITION.
--- NOTE | 2018-07-28 07:36 | NUR ---
Report received from pm nurse. Pt asleep, respirations even & nonlabored, FLACC 0. Call light within reach.
[2018-07-28 07:50] LABS: CREATININE 0.7 mg/dL (0.6-1.3); GLUCOSE 98 mg/dL (74-106); UREA NITROGEN, BLOOD 9 mg/dL (7-18)
[2018-07-28 07:52] LABS: CHOL/HDL RATIO 3.3 (1-4.5); MAGNESIUM 1.9 mg/dL (1.8-2.4); PHOSPHORUS 4.2 mg/dL (2.5-4.9)
[2018-07-28 08:00] VITALS: BP 132/35
--- NOTE | 2018-07-28 08:37 | NUR ---
PATIENT HAS BEEN SCREENED AND CATEGORIZED HIGH NUTRITION RISK. PATIENT WILL BE SEEN WITHIN 1-2 DAYS OF ADMISSION. 07/28/18-07/29/[address]
[2018-07-28 08:56] LABS: ANION GAP 10.7 (8-16); CARBON DIOXIDE 21.3 mmol/L (21-32); CHLORIDE 103 mmol/L (98-107); SODIUM SERUM 130 mmol/L (136-145)
[2018-07-28] MEDS: ASCORBIC ACID 500 MG TAB PO SCH ×2 (08:56→20:23)
[2018-07-28] MEDS: PSYLLIUM 12.2 GM/PKT PO SCH (08:56)
[2018-07-28] MEDS: FAMOTIDINE 20 MG TAB PO SCH (08:56)
[2018-07-28] MEDS: DOCUSATE SODIUM 100 MG GELCAP PO SCH ×2 (08:56→20:23)
[2018-07-28] MEDS: MULTIVITAMIN 1 TAB PO SCH (08:56)
[2018-07-28] MEDS: FERROUS SULFATE 325 MG TABEC PO SCH ×2 (08:56→16:13)
[2018-07-28] MEDS ORDERED: MULTIVITAMIN 1 TAB PO SCH (09:00)
[2018-07-28] MEDS ORDERED: NON-FORMULARY ITEM (Multivitamin (Multi-Vitamins) 1 TAB) PO SCH (09:00)
--- NOTE | 2018-07-28 09:30 | NUR ---
PT REPOSITIONED. KAIDEN WELL. TORO CATH INTACT & DRAINING CLEAR YELLOW URINE. RIGHT AC IV INTACT & ASYMPTOMATIC WITH ONGOING NS @ 100ML/HR. PT VERBALLY RESPONSIVE IN MONTSERRATIAN, NO SIGNS OF DISTRESS.
[2018-07-28] MEDS: LACTOBACILLUS RHAMNOSUS GG 1 EACH CAP GT SCH (09:51)
[2018-07-28] MEDS ORDERED: HYDROcodone/APAP 7.5/325 MG 1 TAB PO SCH (12:00)
--- NOTE | 2018-07-28 15:00 | NUR ---
PT SEEN BY WOUND CARE NURSE.
--- NOTE | 2018-07-28 15:41 | NUR ---
07/28/18 RD INITIAL ASSESSMENT COMPLETED PLEASE REFER TO NUTRITION ASSESSMENT UNDER CARE ACTIVITY FOR ESTIMATED NUTRITIONAL NEEDS. 1. CONTINUE CLEAR LIQUID DIET TOLERATED 2. RECOMMEND BOOST BREEZE IF DIET DOES NOT ADVANCE 3. WHEN PATIENT IS MEDICALLY STABLE CONSIDER ADVANCING TO [facility] [address] [facility] SOFT DIET, TOLERATED. 4. RD TO FOLLOW-UP 3-5 DAYS, MODERATE RISK BEBA HENDRICKSON RD
--- NOTE | 2018-07-28 15:42 | NUR ---
WOUND CARE EVALUATION NOTE: REASON FOR EVALUATION: SACROCOCCYX WOUND COMPLETE SKIN ASSESSMENT DONE ON THIS 83Y/O FEMALE PATIENT ADMITTED TO [facility], WITH INITIAL DIAGNOSIS OF HYPONATREMIA. PAST MEDICAL HISTORY INCLUDE GERD, CHRONIC PAIN, COMPRESSION FX,OSTEOPOROSIS AND CHRONIC INDWELLING TORO CATHETER RT OBSTRUCTIVE UROPATHY. PATIENT IS AWAKE, CONFUSED WITH PRIMARY CARE AT BED SIDE. SKIN WARM TO TOUCH WNL, TOENAILS ARE SLIGHTLY THICKENED, NO EDEMA, WITH FINE HAIR GROWTH AND BILATERAL PEDAL PULSES PRESENT. PATIENT IS INCONTINENT OF BOWEL. NEEDS MAX ASSISTANCE IN TURNING AND REPOSITIONING. INITIAL PLAN OF CARE AND PRESSURE PREVENTIVE MEASURES DISCUSSED WITH PRIMARY NURSE. INTEGUMENTARY: -SACRALCOCCYX PRESSURE INJURY STAGE 2 PRESSUER ULCER, 3X3 X0.1 CM, WOUND BED RED WITH BRITTNI-WOUND DENUDED SKIN AND SURROUNDING REDNESS 5X5 CM INDICATED FURTHER DAMAGE. - LEFT AND RIGHT BUTTOCKS IAD -RIGHT HEEL - BLANCHABLE REDNESS -LEFT HEEL - BLANCHABLE REDNESS RECOMMENDATIONS: -SACROCOCCYX : CLEANSE WITH NS, PAT DRY , APPLY Z-GUARD AND OPTIFORM Q DAY AND PRN IF SOILING -LEFT AND RIGHT BUTTOCKS: CLEANSE WITH MILD SOAP AND WATER, PAT DRY, APPLY Z-GUARD BIDWC AND PRN WITH SOILING. LEAVE OPEN TO AIR -TURN AND REPOSITION PATIENT Q2H TO LEFT AND RIGHT SIDE ONLY TO OFFLOAD SACRALCOCCYX -ASSESS AND MONITOR SKIN CONDITION DURING POSITION CHANGE, PLEASE PAY PARTICULAR ATTENTION TO SACRALCOCCYX, BUTTOCKS AND HEELS -OFFLOAD BILATERAL HEELS BY PLACING PILLOWS UNDER CALVES AT ALL TIMES, UNLESS OTHERWISE CONTRAINDICATED -KEEP SKIN CLEAN AND DRY AT ALL TIMES. -PRESSURE REDISTRIBUTION SURFACE THERAPY. RECOMMENDATIONS DISCUSSED WITH PRIMARY RN. WILL FOLLOW UP PATIENT Q7-10 DAYS AND PRN. PLEASE CONTACT WOUND CARE NURSE FOR ANY CONCERNS, QUESTIONS AND CHANGES IN SKIN CONDITION.
[2018-07-28 16:00] VITALS: BP 126/37
[2018-07-28] MEDS: HYDROcodone/APAP 7.5/325 MG 1 TAB PO SCH ×3 (16:13→23:19)
--- NOTE | 2018-07-28 19:23 | NUR ---
Report given to pm nurse Unique.
--- NOTE | 2018-07-28 19:24 | NUR ---
RECEIVED REPORT FROM DAY SHIFT NURSE ROSA ELENA-RN AT BEDSIDE. PT RESTING IN BED, AOX2- SINHALA SPEAKING, ON ROOM AIR WITH RIGHT FA #20G RUNNING NS @50ML/HR. DISCUSSED PLAN OF CARE AND PT VERBALIZED UNDERSTANDING. NO S/S OF RESPIRATORY DISTRESS OR DISCOMFORT NOTED AT THIS TIME. BED IN LOWEST POSITION, BED BREAKS ON, BOTH SIDE RAILS UP AND FALL PRECAUTIONS IN PLACE. BEDSIDE TABLE AND CALL LIGHT ARE WITHIN REACH. WILL CONTINUE TO MONITOR.
[2018-07-28 20:00] VITALS: BP 106/27
--- NOTE | 2018-07-28 20:00 | NUR ---
VITAL SIGNS TAKEN AND TOLERATED WELL. PT C/O 02/12 PAIN- WILL MEDICATE. NO S/S OF RESPIRATORY DISTRESS OR DISCOMFORT NOTED AT THIS TIME. WILL CONTINUE TO MONITOR.
--- NOTE | 2018-07-28 20:22 | NUR ---
SCHEDULED MEDICATION NORCO GIVEN AND TOLERATED WELL. NO S/S OF RESPIRATORY DISTRESS OR DISCOMFORT NOTED AT THIS TIME. WILL CONTINUE TO MONITOR.
[2018-07-28] MEDS: predniSONE 5 MG TAB PO SCH (20:23)
[2018-07-28] MEDS: GABAPENTIN 100 MG CAP PO SCH (20:23)
--- NOTE | 2018-07-28 20:35 | NUR ---
SCHEDULED MEDICATION GIVEN AND TOLERATED WELL. NO S/S OF RESPIRATORY DISTRESS OR DISCOMFORT NOTED AT THIS TIME. WILL CONTINUE TO MONITOR.
--- NOTE | 2018-07-28 22:00 | NUR ---
PT CONTINUES TO SLEEP IN BED. NO S/S OF RESPIRATORY DISTRESS OR DISCOMFORT NOTED AT THIS TIME. WILL CONTINUE TO MONITOR.
--- NOTE | 2018-07-28 23:12 | NUR ---
SCHEDULED MEDICATION ROCEPHIN GIVEN AND TOLERATED WELL. NO S/S OF RESPIRATORY DISTRESS OR DISCOMFORT NOTED AT THIS TIME. WILL CONTINUE TO MONITOR.
--- NOTE | 2018-07-28 23:19 | NUR ---
SCHEDULED MEDICATION NORCO GIVEN AND TOLERATED WELL. NO S/S OF RESPIRATORY DISTRESS OR DISCOMFORT NOTED AT THIS TIME. WILL CONTINUE TO MONITOR.
[2018-07-29] VITALS: BP 104/27
--- NOTE | 2018-07-29 | NUR ---
VITAL SIGNS TAKEN AND TOLERATED WELL. NO S/S OF RESPIRATORY DISTRESS OR DISCOMFORT NOTED AT THIS TIME. WILL CONTINUE TO MONITOR.
--- NOTE | 2018-07-29 02:00 | NUR ---
PT CONTINUES TO SLEEP IN BED. NO S/S OF RESPIRATORY DISTRESS OR DISCOMFORT NOTED AT THIS TIME. WILL CONTINUE TO MONITOR.
[2018-07-29] MEDS: NACL 0.9% 1,000 ML IV SCH (03:05)
--- NOTE | 2018-07-29 04:00 | NUR ---
PT CONTINUES TO SLEEP IN BED. NO S/S OF RESPIRATORY DISTRESS OR DISCOMFORT NOTED AT THIS TIME. WILL CONTINUE TO MONITOR.
[2018-07-29] MEDS: metroNIDAZOLE 500 MG/NS PREMIX 100 ML IV SCH ×3 (04:50→20:11)
--- NOTE | 2018-07-29 04:50 | NUR ---
SCHEDULED MEDICATION FLAGYL GIVEN AND TOLERATED WELL. NO S/S OF RESPIRATORY DISTRESS OR DISCOMFORT NOTED AT THIS TIME. WILL CONTINUE TO MONITOR.
[2018-07-29] MEDS: HYDROcodone/APAP 7.5/325 MG 1 TAB PO SCH ×6 (05:32→20:11)
--- NOTE | 2018-07-29 05:32 | NUR ---
SCHEDULED MEDICATION NORCO GIVEN AND TOLERATED WELL. NO S/S OF RESPIRATORY DISTRESS OR DISCOMFORT NOTED AT THIS TIME. WILL CONTINUE TO MONITOR.
[2018-07-29 06:26] LABS: BASOPHILS % (AUTO) 0.3 % (0.0-2.0); EOSINOPHILS % (AUTO) 0.2 % (0.0-4.0); HEMATOCRIT 24.3 % (36-48); LYMPHOCYTES # (AUTO) 0.5 K/uL (2.5-16.5); LYMPHOCYTES % (AUTO) 5.6 % (20.5-51.1); MEAN CORPUSCULAR HEMOGLOBIN 31 pg (27-31); MEAN CORPUSCULAR HGB CONC 33 g/dL (33-37); MEAN CORPUSCULAR VOLUME 94.7 fL (80-94); MONOCYTES # (AUTO) 0.5 K/uL (0.8-1.0); MONOCYTES % (AUTO) 6.2 % (1.7-9.3); NEUTROPHILS # (AUTO) 7.4 K/uL (1.8-7.7); NEUTROPHILS % (AUTO) 87.7 % (42.2-75.2); PLATELET COUNT (AUTO) 248 K/uL (140-450); RED BLOOD CELL COUNT(AUTO) 2.56 MIL/uL (4.20-5.40); RED CELL DISTRIBUTION WIDTH 14.3 % (11.6-13.7); WHITE BLOOD COUNT (AUTO) 8.4 K/uL (4.8-10.8)
--- NOTE | 2018-07-29 07:14 | NUR ---
ENDORSED PT CARE TO DAY SHIFT NURSE TRACY-IGNACIO FOR CONTINUITY OF CARE.
--- NOTE | 2018-07-29 07:18 | NUR ---
RECEIVED BEDSIDE REPORT FROM DAY SHIFT NURSE. PT RESTING IN BED, AOX2. NO C/O PAIN OR DISCOMFORT. LUNGS CTA. HEART RHYTHM REGULAR. ABD SOFT AND NON-DISTENDED. PT AWARE OF FOBT TO BE COLLECTED- SIGN PLACED ON WALL AND FIRST COAT OPERATOR AWARE WELL. TORO CATH IN PLACE, DRAINING YELLOW URINE. PT IS BEDBOUND AND INCONTINENT. SACROCOCCYX PRESSURE ULCER, DRESSING C/D/I. IV SITE PATENT AND ASYMPTOMATIC, INFUSING IVF PER MD ORDERS. ALL SAFETY PRECAUTIONS IN PLACE, WILL CONTINUE TO MONITOR.
[2018-07-29 07:40] LABS: ANION GAP 14.1 (8-16); CARBON DIOXIDE 22.3 mmol/L (21-32); CHLORIDE 99 mmol/L (98-107); CREATININE 0.7 mg/dL (0.6-1.3); GLUCOSE 103 mg/dL (74-106); POTASSIUM 4.4 mmol/L (3.5-5.1); SODIUM SERUM 131 mmol/L (136-145); UREA NITROGEN, BLOOD 6 mg/dL (7-18)
[2018-07-29] MEDS ORDERED: CIPROFLOXACIN 0.3% OP 2.5 ML BTL OP SCH (07:55)
[2018-07-29 07:56] LABS: MAGNESIUM 1.9 mg/dL (1.8-2.4); PHOSPHORUS 3.7 mg/dL (2.5-4.9)
[2018-07-29 08:00] VITALS: BP 104/40
[2018-07-29] MEDS: PSYLLIUM 12.2 GM/PKT PO SCH (08:26)
[2018-07-29] MEDS: LACTOBACILLUS RHAMNOSUS GG 1 EACH CAP GT SCH (08:27)
[2018-07-29] MEDS: MULTIVITAMIN 1 TAB PO SCH (08:27)
[2018-07-29] MEDS: FAMOTIDINE 20 MG TAB PO SCH (08:27)
[2018-07-29] MEDS: ASCORBIC ACID 500 MG TAB PO SCH ×2 (08:27→20:12)
[2018-07-29] MEDS: DOCUSATE SODIUM 100 MG GELCAP PO SCH ×2 (08:27→20:12)
[2018-07-29] MEDS: FERROUS SULFATE 325 MG TABEC PO SCH ×2 (08:27→16:08)
--- NOTE | 2018-07-29 08:40 | NUR ---
DR. ROONEY AWARE OF LOW DBP'S FOR THE LAST NIGHT. PER DANIELA BECERRA TO ADMIN THE [place].
--- NOTE | 2018-07-29 10:50 | NUR ---
ASKED PHARMACY TO BRING Z-GUARD ORDERED FOR WOUND CARE.
[2018-07-29] MEDS: Z-GUARD PASTE TP SCH (12:35)
--- NOTE | 2018-07-29 13:52 | NUR ---
PT SLEEPING IN BED, RESPIRATIONS EVEN AND UNLABORED. NO S/S DISTRESS. ALL SAFETY PRECAUTIONS IN PLACE, WILL CONTINUE TO MONITOR.
[2018-07-29] MEDS ORDERED: ROC1PM IV (15:04)
[2018-07-29] MEDS ORDERED: LACT10CA PO (15:04)
[2018-07-29] MEDS ORDERED: METPCK PO (15:04)
[2018-07-29] MEDS ORDERED: METR500S14 IV (15:04)
[2018-07-29 16:00] VITALS: BP 109/47
--- NOTE | 2018-07-29 19:14 | NUR ---
ENDORSED POC TO TECHNICAL MAINTENANCE TECHNICIAN RN. PT IN STABLE CONDITION.
--- NOTE | 2018-07-29 19:15 | NUR ---
RECEIVED REPORT FROM DAY SHIFT NURSE TRACY-RN AT BEDSIDE. PT RESTING IN BED, AOX2- CZECH SPEAKING, ON ROOM AIR WITH LEFT FA #22G RUNNING NS @25ML/HR. SACRAL REDNESS. DISCUSSED PLAN OF CARE AND PT VERBALIZED UNDERSTANDING. NO S/S OF RESPIRATORY DISTRESS OR DISCOMFORT NOTED AT THIS TIME. BED IN LOWEST POSITION, BED BREAKS ON, BOTH SIDE RAILS UP AND FALL PRECAUTIONS IN PLACE. BEDSIDE TABLE AND CALL LIGHT ARE WITHIN REACH. WILL CONTINUE TO MONITOR.
[2018-07-29 20:00] VITALS: BP 126/51
--- NOTE | 2018-07-29 20:00 | NUR ---
VITAL SIGNS TAKEN AND TOLERATED WELL. NO S/S OF RESPIRATORY DISTRESS OR DISCOMFORT NOTED AT THIS TIME. WILL CONTINUE TO MONITOR.
[2018-07-29] MEDS: predniSONE 5 MG TAB PO SCH (20:11)
[2018-07-29] MEDS: GABAPENTIN 100 MG CAP PO SCH (20:12)
--- NOTE | 2018-07-29 20:12 | NUR ---
SCHEDULED MEDICATIONS GIVEN AND TOLERATED WELL. NO S/S OF RESPIRATORY DISTRESS OR DISCOMFORT NOTED AT THIS TIME. WILL CONTINUE TO MONITOR.
[2018-07-29] MEDS ORDERED: MIRTAZAPINE 15 MG TAB PO SCH (21:00)
--- NOTE | 2018-07-29 22:00 | NUR ---
PT SLEEPING IN BED AT THIS TIME. NO S/S OF RESPIRATORY DISTRESS OR DISCOMFORT NOTED AT THIS TIME. WILL CONTINUE TO MONITOR.
--- NOTE | 2018-07-29 22:50 | NUR ---
SCHEDULED MEDICATION ROCEPHIN GIVEN AND TOLERATED WELL. PT CONTINUES TO SLEEP IN BED. NO S/S OF RESPIRATORY DISTRESS OR DISCOMFORT NOTED AT THIS TIME. WILL CONTINUE TO MONITOR.
--- NOTE | 2018-07-30 | NUR ---
VITAL SIGNS TAKEN AND TOLERATED WELL. NO S/S OF RESPIRATORY DISTRESS OR DISCOMFORT NOTED AT THIS TIME. PT CONTINUES TO SLEEP. WHEN ASKED IF SHE WANTED HER SCHEDULED NORCO PAIN MEDICATION SHE SAID, "LATER." WILL CONTINUE TO MONITOR.
[2018-07-30] MEDS: NACL 0.9% 1,000 ML IV SCH (01:36)
[2018-07-30] MEDS: Z-GUARD PASTE TP SCH ×2 (01:38→13:38)
--- NOTE | 2018-07-30 02:00 | NUR ---
PT CONTINUES TO SLEEP IN BED. NO S/S OF RESPIRATORY DISTRESS OR DISCOMFORT NOTED AT THIS TIME. WILL CONTINUE TO MONITOR.
--- NOTE | 2018-07-30 04:00 | NUR ---
PT SLEEPING IN BED. NO S/S OF RESPIRATORY DISTRESS OR DISCOMFORT NOTED AT THIS TIME. WILL CONTINUE TO MONITOR.
[2018-07-30] MEDS: HYDROcodone/APAP 7.5/325 MG 1 TAB PO SCH ×6 (04:18→14:47)
[2018-07-30] MEDS: metroNIDAZOLE 500 MG/NS PREMIX 100 ML IV SCH ×2 (04:18→12:47)
--- NOTE | 2018-07-30 04:18 | NUR ---
SCHEDULED MEDICATION GIVEN AND TOLERATED WELL. NO S/S OF RESPIRATORY DISTRESS OR DISCOMFORT NOTED AT THIS TIME. WILL CONTINUE TO MONITOR.
--- NOTE | 2018-07-30 06:00 | NUR ---
PT CONTINUES TO SLEEP IN BED. NO S/S OF RESPIRATORY DISTRESS OR DISCOMFORT NOTED AT THIS TIME. WILL CONTINUE TO MONITOR.
[2018-07-30 07:07] LABS: BASOPHILS % (AUTO) 0.3 % (0.0-2.0); EOSINOPHILS % (AUTO) 0.3 % (0.0-4.0); HEMATOCRIT 26.5 % (36-48); HEMOGLOBIN 8.4 g/dL (12.0-16.0); LYMPHOCYTES # (AUTO) 0.6 K/uL (2.5-16.5); LYMPHOCYTES % (AUTO) 7.9 % (20.5-51.1); MEAN CORPUSCULAR HEMOGLOBIN 30 pg (27-31); MEAN CORPUSCULAR HGB CONC 32 g/dL (33-37); MEAN CORPUSCULAR VOLUME 95.9 fL (80-94); MONOCYTES # (AUTO) 0.5 K/uL (0.8-1.0); MONOCYTES % (AUTO) 6.2 % (1.7-9.3); NEUTROPHILS # (AUTO) 6.2 K/uL (1.8-7.7); NEUTROPHILS % (AUTO) 85.3 % (42.2-75.2); PLATELET COUNT (AUTO) 230 K/uL (140-450); RED BLOOD CELL COUNT(AUTO) 2.76 MIL/uL (4.20-5.40); RED CELL DISTRIBUTION WIDTH 14.4 % (11.6-13.7); WHITE BLOOD COUNT (AUTO) 7.3 K/uL (4.8-10.8)
[2018-07-30 07:27] LABS: MAGNESIUM 1.7 mg/dL (1.8-2.4); PHOSPHORUS 3.5 mg/dL (2.5-4.9)
[2018-07-30 07:30] LABS: ANION GAP 13.8 (8-16); CARBON DIOXIDE 20.3 mmol/L (21-32); CHLORIDE 101 mmol/L (98-107); CREATININE 0.7 mg/dL (0.6-1.3); GLUCOSE 91 mg/dL (74-106); POTASSIUM 4.1 mmol/L (3.5-5.1); SODIUM SERUM 131 mmol/L (136-145); UREA NITROGEN, BLOOD 6 mg/dL (7-18)
--- NOTE | 2018-07-30 07:34 | NUR ---
ENDORSED PT CARE TO DAY SHIFT NURSE DESI-RN FOR CONTINUITY OF CARE.
--- NOTE | 2018-07-30 07:40 | NUR ---
PATIENT IS AWAKE RESPIRATION EVEN AND UNLABOR ON ROOM AIR. NO DISTRESS NOTED. SKIN IS WARM AND DRY. IV INTACT AND PATENT. TORO CATHETER IN PLACE DRAINING YELLOW URINE. PLAN OF CARE WAS DISCUSS. BED IS IN LOW POSITION. CALL LIGHT WITHIN REACH.
[2018-07-30 08:00] VITALS: BP 138/50
[2018-07-30] MEDS ORDERED: MAG SULF 2000 MG/WATER PREMIX 50 ML IV SCH (08:00)
--- NOTE | 2018-07-30 09:00 | NUR ---
PATIENT IS AWAKE RESPIRATION EVEN AND UNLABOR ON ROOM AIR. VITAL SIGNS WITHIN THE NORMAL RANGE. NO DISTRESS NOTED. ALL MEDS WERE GIVEN PER ORDER. WILL CONTINUE TO MONITOR.
[2018-07-30] MEDS: FERROUS SULFATE 325 MG TABEC PO SCH (09:44)
[2018-07-30] MEDS: DOCUSATE SODIUM 100 MG GELCAP PO SCH (09:45)
[2018-07-30] MEDS: FAMOTIDINE 20 MG TAB PO SCH (09:45)
[2018-07-30] MEDS: LACTOBACILLUS RHAMNOSUS GG 1 EACH CAP GT SCH (09:45)
[2018-07-30] MEDS: ASCORBIC ACID 500 MG TAB PO SCH (09:45)
[2018-07-30] MEDS: MULTIVITAMIN 1 TAB PO SCH (09:45)
[2018-07-30] MEDS: PSYLLIUM 12.2 GM/PKT PO SCH (09:46)
--- NOTE | 2018-07-30 09:58 | NUR ---
FAXED INFORMATION TO [facility] [phone]
--- NOTE | 2018-07-30 10:00 | NUR ---
PATIENT IS SLEEPING COMFORTABLY RESPIRATION EVEN AND UNLABOR ON ROOM AIR. CALL LIGHT WITHIN REACH.
--- NOTE | 2018-07-30 10:52 | NUR ---
RECEIVED A CALL FROM PRASHANT [place] [facility] [place]IENT CAN GO TO ROOM [address]A UNDER DR[address] BABIN ANYTIME. WILL INFORM SAHRA PIERRECORPORATE SPECIALIST NURSE. DESI PIERRE AWARE. AUTH FROM [facility] FROM [facility] [id number]. CALLED [facility]. AND SET UP GURNEY TRANSPORT FOR 330 P.M. DESI PIERRE AWARE.
--- NOTE | 2018-07-30 15:25 | NUR ---
GAVE REPORT TO [facility]. AWAITING FOR TREE FALLER AT 1530 BY ELIF.
[2018-07-30 16:00] VITALS: BP 129/48
--- NOTE | 2018-07-30 16:25 | NUR ---
PT PICKED UP BY GERI MONREAL TO [facility] IN [facility].
[2018-08-03] MEDS ORDERED: ALENDRONATE SODIUM 70 MG TAB PO SCH (06:00)
== END 2018-07-30 16:26 | DRG 391 ==
LOC: MED 09:50 → MTU 12:44
PROVIDERS: ADMIT Family Medicine; ATTEND Family Medicine
DX: K57.92 Diverticulitis of intestine, part unspecified, without perforation or abscess without bleeding (principal); E43 Unspecified severe protein-calorie malnutrition; E87.1 Hypo-osmolality and hyponatremia; L89.152 Pressure ulcer of sacral region, stage 2; E83.42 Hypomagnesemia; F32.9 Major depressive disorder, single episode, unspecified; D64.9 Anemia, unspecified; F03.90 Unspecified dementia, unspecified severity, without behavioral disturbance, psychotic disturbance, mood disturbance, and anxiety; M06.9 Rheumatoid arthritis, unspecified; K21.9 Gastro-esophageal reflux disease without esophagitis; J45.909 Unspecified asthma, uncomplicated; I10 Essential (primary) hypertension; M81.0 Age-related osteoporosis without current pathological fracture; G89.29 Other chronic pain; Z68.25 Body mass index [BMI] 25.0-25.9, adult; Z88.5 Allergy status to narcotic agent; Z79.899 Other long term (current) drug therapy; Z74.01 Bed confinement status; Z82.61 Family history of arthritis
CPT/HCPCS: 36415; 71045; 80048; 80053; 81001; 82150; 83036; 83605; 83690; 83735; 83880; 83930; 83935; 84100; 84300; 84439; 84443; 84484; 84550; 85025; 85610; 85730; 87040; 87081; 87086; 87804; 93005; 96361; 96374; 99285; J0696; J1644; J1885; J3475; J3490; J7030; J7060; J7512; Q0092

== ENCOUNTER 2019-12-14 12:06 | Inpatient (IN) | payer OTHER, SELFPAY ==
[~2019-12-14] VITALS: Ht 165.1 cm; Wt 29.9 kg
[~2019-12-14 12:06] MED LIST changes: -ACET-787 PO; -ACET-9529 PO; +ALEN70TA1 PO; -CITA20TA15 PO; +CRAN450C PO; +FERR-252 PO; -FOS70 PO; +LAC PO; +LACT10CA PO; +MELA5TAB6 PO; +METPCK PO; +METR500S14 IV; +MIRT30TA PO; +MULT-153 PO; +ROC1PM IV
--- NOTE | 2019-12-14 12:07 | NUR ---
BIBA TAKEN TO BED 9
[2019-12-14 12:12] VITALS: BP 101/47
[2019-12-14] MEDS ORDERED: LACT10SO1 PO (12:16)
[2019-12-14] MEDS ORDERED: MAGN400S60 PO (12:16)
[2019-12-14] MEDS ORDERED: HYOS-77 SL (12:16)
[2019-12-14] MEDS ORDERED: HYDR-5122 PO (12:16)
[2019-12-14] MEDS ORDERED: BISA-213 RC (12:17)
[2019-12-14] MEDS ORDERED: PRED5TAB7 PO (12:17)
--- NOTE | 2019-12-14 12:20 | NUR ---
TORO CATH IN PLACE
--- NOTE | 2019-12-14 12:20 | NUR ---
DR. VEGAS EVALUATING PT AT BEDSIDE
--- NOTE | 2019-12-14 12:20 | NUR ---
84/F BIBA BLS FROM [facility] FOR ELEVATED WBC 12.73 AND HYPONATREMIA 122, AND VOMITING X 1 TODAY EYES OPEN SPONTANEOUSLY AND TURNS HEAD TO VOICE. LIMITED MOVEMENTS SEEN IN BUE. NO MOVEMENT SEEN TO BLE. BL FOOT DROP. ULCER TO RIGHT FOOT, DRESSING C/D/I. PER EMS PT IS AT BASELINE (AOX1). PER EMS PT IS DNR. PT ATTACHED TO BEDSIDE MONITOR. BEDRAILS UP X2, BED LOCKED & LOW. MEDHX: MUSCLE WEAKNESS, DIVERTICULITIS, OSTEOPOROSIS, ARTHRITIS, ANEMIA
[2019-12-14] MEDS ORDERED: NACL 0.9% 1,000 ML IV ONE (12:30)
--- NOTE | 2019-12-14 12:35 | NUR ---
URINE SAMPLE WITHDRAWN FROM EXISTING TORO CATH PORT USING STERILE TECHNIQUE.
--- NOTE | 2019-12-14 12:56 | NUR ---
DEXIGRAPH OPERATOR AT BEDSIDE FOR BLOOD DRAW
--- NOTE | 2019-12-14 13:03 | NUR ---
URINE SAMPLE HANDED TO CONSUMER SAFETY OFFICER AT BEDSIDE
--- NOTE | 2019-12-14 13:11 | NUR ---
CALLED XRAY DEPT TO COME DO CXR FOR PT
--- NOTE | 2019-12-14 13:23 | NUR ---
X-Ray at bedside.
[2019-12-14 13:28] LABS: BASOPHILS # (AUTO) 0.1 K/uL (0.00-0.22); BASOPHILS % (AUTO) 0.9 % (0.0-2.0); EOSINOPHILS # (AUTO) 0.1 K/uL (0-0.4); EOSINOPHILS % (AUTO) 0.7 % (0.0-4.0); LYMPHOCYTES % (AUTO) 12.8 % (20.5-51.1); MEAN CORPUSCULAR HEMOGLOBIN 30 pg (27-31); MEAN CORPUSCULAR HGB CONC 33 g/dL (33-37); MEAN CORPUSCULAR VOLUME 90.4 fL (80-94); MONOCYTES # (AUTO) 0.7 K/uL (0.8-1.0); MONOCYTES % (AUTO) 9.4 % (1.7-9.3); NEUTROPHILS # (AUTO) 5.8 K/uL (1.8-7.7); NEUTROPHILS % (AUTO) 76.2 % (42.2-75.2); PLATELET COUNT (AUTO) 217 K/uL (140-450); RED BLOOD CELL COUNT(AUTO) 2.21 MIL/uL (4.20-5.40); RED CELL DISTRIBUTION WIDTH 15.7 % (11.6-13.7); WHITE BLOOD COUNT (AUTO) 7.6 K/uL (4.8-10.8)
[2019-12-14 13:35] LABS: ALBUMIN 1.6 g/dL (3.4-5.0); ASPARTATE AMINOTRANSFERASE 10 U/L (15-37); CHLORIDE 96 mmol/L (98-107); CREATININE 0.5 mg/dL (0.6-1.3); GLUCOSE 88 mg/dL (74-106); SODIUM SERUM 127 mmol/L (136-145); TOTAL BILIRUBIN 0.2 mg/dL (0.0-1.0); UREA NITROGEN, BLOOD 15 mg/dL (7-18)
[2019-12-14 13:35] LABS: APPEARANCE,URINE CLOUDY (CLEAR); BILIRUBIN,URINE NEGATIVE (NEGATIVE); BLOOD, URINE 1+ (NEGATIVE); COLOR,URINE YELLOW (YELLOW); NITRITE, URINE NEGATIVE (NEGATIVE); PH,URINE 8.5 (5.0-9.0); UGLUCOSE NEGATIVE (NEGATIVE)
[2019-12-14 13:36] LABS: HEMOGLOBIN 6.6 g/dL (12.0-16.0)
--- NOTE | 2019-12-14 13:38 | NUR ---
RECEIVED CRITICAL LAB VALUES FROM LAB-- HEMOGLOBIN 6.6; HEMATOCRIT 20.0. DR VEGAS MADE AWARE
[2019-12-14 13:41] LABS: TRIPLE PHOSPHATE CRYSTAL,UR 0-10 /HPF (None Seen)
[2019-12-14 13:42] LABS: LEUKOCYTE ESTERASE ,URINE 1+ (NEGATIVE)
[2019-12-14 13:44] LABS: WBC,URINE 0-5 /HPF (0-5)
--- NOTE | 2019-12-14 13:51 | NUR ---
DR. VEGAS RE-EVALUATING PT AT BEDSIDE
--- NOTE | 2019-12-14 14:01 | NUR ---
XRAY AT BEDSIDE
--- NOTE | 2019-12-14 14:59 | NUR ---
PT RESTING IN BED, RESPIRATIONS EVEN AND UNLABORED
[2019-12-14] MEDS ORDERED: ONDANSETRON 4 MG/2 ML VIAL IM/IVP PRN (15:15)
[2019-12-14] MEDS ORDERED: DOCUSATE SODIUM 100 MG GELCAP PO PRN (15:15)
--- NOTE | 2019-12-14 15:17 | NUR ---
PODIATRY RESIDENT AT BEDSIDE TO DRESS RT FOOT WOUND
[2019-12-14 15:50] VITALS: BP 121/76
--- NOTE | 2019-12-14 15:50 | NUR ---
RECEIVED REPORT FROM ER NURSE FOR CONTINUITY OF CARE. PT. IS ASLEEP AND IN BED. TELE MONITORING ATTACHED. MRSA CULTURE SWABBED. AAOX1, PT. IS APHASIC, WITH GCS OF 13. NO SIGNS OF DISTRESS WITH FLACC SCORE OF 0. PT. IS ON RA WITH SAO2 AT 100%, RESPIRATIONS EVEN AND UNLABORED. IV SITE ON THE LEFT FOREARM 20G. POC DISCUSSED. SAFETY PRECAUTIONS IN PLACE. CALL LIGHT WITHIN REACH. WILL CONTINUE TO MONITOR.
--- NOTE | 2019-12-14 15:55 | NUR ---
Patient will be admitted to care of DR. BABIN. Admited to TELE. Will go to room 124B. Belongings list completed. Report to HENRIQUE PIERRE.
--- NOTE | 2019-12-14 16:10 | NUR ---
PT. IS ASSESSED. LUNG SOUNDS CLEAR ON RA. HEART SOUNDS REGULAR WITH S1&S2. SKIN NON-INTACT WITH PRESSURE ULCER ON LEFT TOE AND RIGHT FOOT, AND SACRAL EXCORIATION. PICTURES TAKEN AND IS IN CHART. IV PATENT AND FLUSHES WELL. CAP REFILL <3 SEC, PT. DOES NOT PRESENT EDEMA. COVID-19 TEST TAKEN, PT. IS PLACED ON DROPLET PRECAUTION. V/S TAKEN BP 121/76, HR 82, RR 20, TEMP 97.7, SAO2 100%, FLACC-0. NO SIGNS OF DISTRESS NOTED. WILL CONTINUE TO MONITOR.
[2019-12-14 16:16] LABS: MAGNESIUM 1.9 mg/dL (1.8-2.4); PHOSPHORUS 3.4 mg/dL (2.5-4.9); THYROID STIMULATING HORMONE 2.61 uIU/mL (0.34-3.74)
[2019-12-14] MEDS: NACL 0.9% 1,000 ML IV SCH (16:32)
--- NOTE | 2019-12-14 17:12 | NUR ---
RECEIVED CALL FROM LAB ABOUT BLOOD READY FOR TRANSFUSION. WILL FOLLOW THROUGH
[2019-12-14] MEDS ORDERED: ACET-2619 PO (17:13)
[2019-12-14] MEDS ORDERED: PRON INH (17:13)
--- NOTE | 2019-12-14 17:30 | NUR ---
CONSENT FOR BLOOD TRANSFUSION OBTAINED FROM PT'S FAMILY, DR. ROCHA HAS SIGNED CONSENT WELL. WILL FOLLOW THROUGH.
[2019-12-14] MEDS ORDERED: ALBUTEROL 0.083% 2.5 MG/3 ML NEBU INH PRN (18:00)
[2019-12-14] MEDS ORDERED: BISACODYL 10 MG SUPP RC SCH (18:00)
[2019-12-14] MEDS ORDERED: HYOSCYAMINE 0.125 MG TAB SL PRN (18:00)
[2019-12-14] MEDS ORDERED: ACETAMINOPHEN 325 MG TAB PO SCH (18:00)
[2019-12-14] MEDS ORDERED: MAGNESIUM HYDROXIDE 2400 MG/30 ML UDC PO PRN (18:00)
--- NOTE | 2019-12-14 18:01 | NUR ---
RECEIVED BLOOD FROM LAB. WILL ADMINISTER.
[2019-12-14] MEDS ORDERED: VANCOMYCIN PER PHARMACY MC PRN (18:15)
--- NOTE | 2019-12-14 18:15 | NUR ---
BLOOD TRANSFUSION HAS STARTED. PRE-INFUSION V/S BP 103/79, HR 89, TEMP 97.7, SAO2 99%. NO SIGNS OF DISTRESS NOTED. WILL CONTINUE TO MONITOR.
[2019-12-14] MEDS ORDERED: BISACODYL 10 MG SUPP RC PRN (18:25)
--- NOTE | 2019-12-14 19:29 | NUR ---
RECEIVED BEDSIDE REPORT FROM DAY SHIFT NURSE, HENRIQUE. BREATHING EVEN AND UNLABORED. IV SITE ON LFA, 20G, PATENT, INTACT AND ASYMPTOMATIC. RUNNING BLOOD TRANSFUSION MD ORDERED. PT TOLERATED WELL. VITAL SIGN WITHIN PT'S BASELINE. PT HAS R FOOT ULCER. WILL COLLECT AERO/ANAEROBIC CULTURE. SKIN WARM AND DRY TO TOUCH. ENHANCED PRECAUTION FOR R/O COVID19. PT HAS TORO CATHETER. ALL SAFETY MEASUREMENT ARE MET. BED IN LOW POSITION, CALL LIGHT WITHIN REACH. WILL CONTINUE TO MONITOR.
--- NOTE | 2019-12-14 19:30 | NUR ---
ENDORSED TO TRAFFIC ROUTING ENGINEER RNCAM, FOR CONTINUITY OF CARE.
[2019-12-14 20:00] VITALS: BP 122/57
[2019-12-14 20:47] LABS: ANION GAP 12.6 (8-16); CARBON DIOXIDE 23.7 mmol/L (21-32); CHLORIDE 94 mmol/L (98-107); CREATININE 0.7 mg/dL (0.6-1.3); GLUCOSE 93 mg/dL (74-106); POTASSIUM 4.3 mmol/L (3.5-5.1); SODIUM SERUM 126 mmol/L (136-145); UREA NITROGEN, BLOOD 13 mg/dL (7-18)
[2019-12-14] MEDS: LACTULOSE 20 GM/30 ML UDC PO SCH (21:11)
[2019-12-14] MEDS: predniSONE 5 MG TAB PO SCH (21:12)
[2019-12-14] MEDS: DOCUSATE SODIUM 100 MG GELCAP PO SCH (21:12)
--- NOTE | 2019-12-14 21:12 | NUR ---
BLOOD TRANSFUSION DONE. NO ACUTE DISTRESS NOTED. GIVEN LACTULOSE, COLACE, PREDNISONE, AND ROCEPHIN MD ORDERED. PT TOLERATED WELL.
[2019-12-14] MEDS ORDERED: VANCOMYCIN 500 MG in NACL 0.9% 100 ML IV SCH (22:00)
--- NOTE | 2019-12-14 22:30 | NUR ---
GIVEN VANCOMYCIN MD ORDERED. PT TOLERATED WELL.
[2019-12-15] VITALS: BP 120/60
--- NOTE | 2019-12-15 00:02 | NUR ---
VS CHECKED, WITHIN PT'S BASELINE. WILL CONTINUE TO MONITOR.
--- NOTE | 2019-12-15 02:05 | NUR ---
PT SLEEPING IN BED. COMFORTABLY. NO ACUTE DISTRESS NOTED.
[2019-12-15 04:00] VITALS: BP 119/60
--- NOTE | 2019-12-15 04:04 | NUR ---
VS CHECKED, WITHIN PT'S BASELINE. WILL CONTINUE TO MONITOR.
[2019-12-15 06:04] LABS: BASOPHILS # (AUTO) 0.1 K/uL (0.00-0.22); BASOPHILS % (AUTO) 0.8 % (0.0-2.0); EOSINOPHILS % (AUTO) 0.1 % (0.0-4.0); HEMATOCRIT 28.6 % (36-48); HEMOGLOBIN 9.6 g/dL (12.0-16.0); LYMPHOCYTES # (AUTO) 0.6 K/uL (2.5-16.5); LYMPHOCYTES % (AUTO) 7.8 % (20.5-51.1); MEAN CORPUSCULAR HEMOGLOBIN 30 pg (27-31); MEAN CORPUSCULAR HGB CONC 33 g/dL (33-37); MEAN CORPUSCULAR VOLUME 88.6 fL (80-94); MONOCYTES # (AUTO) 0.5 K/uL (0.8-1.0); MONOCYTES % (AUTO) 6.4 % (1.7-9.3); NEUTROPHILS # (AUTO) 6.2 K/uL (1.8-7.7); NEUTROPHILS % (AUTO) 84.9 % (42.2-75.2); PLATELET COUNT (AUTO) 292 K/uL (140-450); RED BLOOD CELL COUNT(AUTO) 3.23 MIL/uL (4.20-5.40); RED CELL DISTRIBUTION WIDTH 15.7 % (11.6-13.7); WHITE BLOOD COUNT (AUTO) 7.3 K/uL (4.8-10.8)
[2019-12-15 06:29] LABS: ANION GAP 12.8 (8-16); CARBON DIOXIDE 23.6 mmol/L (21-32); CHLORIDE 97 mmol/L (98-107); CREATININE 0.5 mg/dL (0.6-1.3); GLUCOSE 87 mg/dL (74-106); POTASSIUM 4.4 mmol/L (3.5-5.1); SODIUM SERUM 129 mmol/L (136-145); UREA NITROGEN, BLOOD 10 mg/dL (7-18)
[2019-12-15 06:49] LABS: CHOL/HDL RATIO 3.5 (1-4.5)
--- NOTE | 2019-12-15 06:58 | NUR ---
PT IN STABLE CONDITION. WILL ENDORSE PT TO DAY SHIFT NURSE FOR CONTINUOUS CARE.
--- NOTE | 2019-12-15 07:22 | NUR ---
RECEIVED REPORT FROM NIGHT NURSE, PT IS ON ROOM AIR, IV SITES INTACT AND PATENT ON LEFT FA G 20., AAOX1 SAFETY MEASURES IN PLACE CALL LIGHT WITHIN REACH.WILL CONTINUE TO MONITOR.
[2019-12-15 08:00] VITALS: BP 138/67
[2019-12-15 08:09] LABS: FOLIC ACID 10.9 ng/mL (>3.0)
[2019-12-15] MEDS: LACTULOSE 20 GM/30 ML UDC PO SCH ×2 (08:53→21:06)
[2019-12-15] MEDS: ASCORBIC ACID 500 MG TAB PO SCH (08:54)
[2019-12-15] MEDS: DOCUSATE SODIUM 100 MG GELCAP PO SCH ×2 (08:54→21:06)
[2019-12-15] MEDS: FERROUS SULFATE 325 MG TABEC PO SCH ×3 (08:54→17:43)
[2019-12-15] MEDS: LACTOBACILLUS RHAMNOSUS GG 1 EACH CAP PO SCH (08:54)
--- NOTE | 2019-12-15 09:08 | NUR ---
PATIENT HAS BEEN SCREENED AND CATEGORIZED HIGH NUTRITION RISK. PATIENT WILL BE SEEN WITHIN 1-2 DAYS OF ADMISSION. 12/15/19-12/16/[address]
--- NOTE | 2019-12-15 09:30 | NUR ---
MEDICATION DUE GIVEN AT THIS TIME, PT IS AWAKE AND LYING IN BED.PT IS STABLE AND IV SITES INTACT AND PATENT.SAFETY MEASURES IN PLACE, CALL LIGHT WITHIN REACH, WILL CONTINUE TO MONITOR.
--- NOTE | 2019-12-15 10:51 | NUR ---
BAR ATTENDANT NOTE: Basic Screen: Yes High Risk DC Screen Ahmeek: JOSEPH Negrete Relationship: NIECE Pre-Admission Living Arrangements: SNF Other: [facility] Prior ADL Total/Dependent Current Home Health Name/Tel: N/A Current DME/02 Name/Tel: BED BOUND Current Hospice Name/Tel: N/A Current Dialysis Name/Tel: N/A Healthcare Decision Maker: Next of Kin Advance Directive No Physician Orders for Life Sustaining Treatment Form No Discipline: Case Mgt/Social Svcs Tentative Discharge Plan/Destination: SNF/ECF Other: [facility] Will require assistance post discharge: No Referred to Keeper Head: No Tentative Discharge Plan Summary: PATIENT IS AN 84-YEAR-OLD FEMALE ADMITTED FOR SEVERE ANEMIA. PATIENT HAS PMHX OF DIVERTICULOSIS, ASTHMA, PRESSURE ULCERS, OSTEOPOROSIS, RA, UROPATHY, ANEMIA, MALNUTRITION, HYPONATREMIA, AND GERD. PATIENT WAS ADMITTED FROM [facility]. SW CONTACTED DEMETRICE FROM [facility] [place] [facility] [place] [phone]. PER DEMETRICE, PATIENT IS ASSISTED AND ON A BED HOLD. DEMETRICE REPORTED THAT PATIENT IS NOT ALERT/ORIENTED AT BASELINE AND THAT PATIENT REQUIRES TOTAL ASSISTANCE WITH ADLS. TENTATIVE DISCHARGE PLAN IS FOR PATIENT IS TO RETURN TO [facility]. NO FURTHER NEEDS IDENTIFIED. Signature: TREVON POWERS Date: Dec 15, 2019 Time: 10:50
[2019-12-15 12:00] VITALS: BP 131/79
--- NOTE | 2019-12-15 12:00 | NUR ---
MEDICATIONS DUE GIVEN AND VITAL SIGNS CHECK, PT IS AWAKE AND IN STABLE CONDITION. SAFETY MEASURES IN PLACE CALL LIGHT WITHIN REACH. WILL CONTINUE TO MONITOR.
--- NOTE | 2019-12-15 12:24 | NUR ---
PATIENTS NIECE CALLED DIONY TO GET UPDATES ON HER GREAT AUNT AND INFORMED HER ABOUT THE CONDITION OF THE PATIENT. WILL CONTINUE TO MONITOR.
--- NOTE | 2019-12-15 14:50 | NUR ---
DC PLANN[age] YRS OLD FEMALE PATIENT WAS ADMITTED FROM [facility] [place] [place] WITH A DX OF SEVER ANEMIA ,HYPONATREMIA AND RIGHT FOOT WOUND. PATIENT HAS A HX OF MALNUTRITION, GERD GENERALIZE WEAKNESS AND ANEMIA. PT IS NON-VERBAL AND BEDBOUND AT BASELINE. XRAY O FRT FOOT SHOWED MILD DEGENERATIVE CHANGE DIFFUSE OSTEOPENIA AND ATHEROSCLEROTIC DISEASE. BLOOD AND WOUND CULTURE PENDING. ADMINISTERED IVF, IV ABX ROCEPHIN . ADMINISTERED 1 UNIT PRBC FOR H/H 6.6/20.0. CONSULTED WITH ID, PODIATRY AND SENIOR MEDICAL TRANSCRIPTIONIST . DC PLAN TO GO BACK TO [facility] [place] [place] WHEN STABLE. COVID TEST PENDING. CM TO FOLLOW Addendum: 12/16/19 at 1343 by Becca Pena CM DC PLANNING: H/H 10.4/31.7 AFTER BLOOD TRANSFUSION, COVID TEST PENDING . SEEN BY DR STEWART AWAITING FOR CULTURES RESULT AND CONTINUE IVF, IV ROCEPHIN AND IV FLAGYL AND CONTINUE LOCAL WOUND CARE. DC PLAN PER COVID RESULT. CM TO FOLLOW Addendum: 12/19/19 at 1625 by Amber Bonilla CM PATIENT WILL BE ACCEPTED BACK TO [facility] [place] [place] TODAY ROOM 25 A. [facility] WILL BE HERE TO HAND PAINT MIXER PATIENT BY 5:30. NOTIFIED IGNACIO MAGANA OF HAND PAINT MIXER TIME
--- NOTE | 2019-12-15 14:58 | NUR ---
12/15/19 RD INITIAL ASSESSMENT COMPLETED PLEASE REFER TO NUTRITION ASSESSMENT UNDER CARE ACTIVITY FOR ESTIMATED NUTRITIONAL NEEDS. 1. CONTINUE PUREE DIET TOLERATED 2. CONTINUE ENSURE TID 3. PROVIDE FEEDING ASSISTANCE WITH MEALS AND ENCOURAGE PO INTAKE <50% 4. RD TO FOLLOW-UP 2-3 DAYS, HIGH RISK BEBA HENDRICKSON, ROXANE
[2019-12-15] MEDS: NACL 0.9% 1,000 ML IV SCH (15:11)
[2019-12-15 16:00] VITALS: BP 129/63
--- NOTE | 2019-12-15 17:30 | NUR ---
PATIENT HAD A FEVER AT THIS TIME 101.5. WILL CONTINUE TO MONITOR.
[2019-12-15] MEDS: ACETAMINOPHEN 325 MG TAB PO PRN (18:32)
--- NOTE | 2019-12-15 18:40 | NUR ---
GAVE TYLENOL TO PT FOR FEVER AT THIS TIME WILL CONTINUE TO MONITOR
--- NOTE | 2019-12-15 19:20 | NUR ---
ENDORSED PT TO NIGHT NURSE FOR CONTIN UITY OF CARE. PT IS STABLE
--- NOTE | 2019-12-15 19:30 | NUR ---
RECEIVED PT FROM TARSHA PIERRE PT AOX1 ON TELMETRY SR PT CONTRACTED IV ON LEFT FA INFUSING WELL. TORO CATH DRAINING WELL YELLOW URINE, PT AT RA NOT DISTRESS NOTED REPOSITIONED.
[2019-12-15 20:00] VITALS: BP 120/58
[2019-12-15] MEDS ORDERED: predniSONE 10 MG TAB ONE (20:50)
[2019-12-15] MEDS ORDERED: CRUSHER, PILL MC ONE (20:52)
[2019-12-15] MEDS: metroNIDAZOLE 500 MG/NS PREMIX 100 ML IV SCH (21:01)
[2019-12-15] MEDS: predniSONE 5 MG TAB PO SCH (21:07)
--- NOTE | 2019-12-15 21:30 | NUR ---
PT TAKEN HER ORAL MEDIC WELL WITH APPLE SAUCE NOT DISTRESS NOTED, PT IS REPOSITIONED Q2
[2019-12-16] VITALS: BP 98/48
--- NOTE | 2019-12-16 02:34 | NUR ---
PT SLEEPING WELL NOT DISTRESS NOTED ON TELEMETRY SR NOT DISTRRESS NOTED AT THIS ROSANA;E
[2019-12-16 04:00] VITALS: BP 115/53
--- NOTE | 2019-12-16 04:00 | NUR ---
SPONGE BATH GIVEN LINEN CHANGED , REPOSITIONED Q2H, ON TELEMETRY SR TORO CATH DRAINING WELL YELLOW URILNE
[2019-12-16] MEDS: metroNIDAZOLE 500 MG/NS PREMIX 100 ML IV SCH ×3 (05:07→21:59)
[2019-12-16] MEDS: NACL 0.9% 1,000 ML IV SCH (05:08)
[2019-12-16 06:12] LABS: BASOPHILS % (AUTO) 0.3 % (0.0-2.0); HEMATOCRIT 31.7 % (36-48); HEMOGLOBIN 10.4 g/dL (12.0-16.0); LYMPHOCYTES # (AUTO) 0.4 K/uL (2.5-16.5); LYMPHOCYTES % (AUTO) 5.4 % (20.5-51.1); MEAN CORPUSCULAR HEMOGLOBIN 30 pg (27-31); MEAN CORPUSCULAR HGB CONC 33 g/dL (33-37); MONOCYTES # (AUTO) 0.3 K/uL (0.8-1.0); NEUTROPHILS # (AUTO) 7.4 K/uL (1.8-7.7); NEUTROPHILS % (AUTO) 90.3 % (42.2-75.2); PLATELET COUNT (AUTO) 282 K/uL (140-450); RED BLOOD CELL COUNT(AUTO) 3.52 MIL/uL (4.20-5.40); RED CELL DISTRIBUTION WIDTH 15.9 % (11.6-13.7); WHITE BLOOD COUNT (AUTO) 8.2 K/uL (4.8-10.8)
--- NOTE | 2019-12-16 06:40 | NUR ---
PT WILL BE ENDORSED TO DAYSHIFT NURSE FOR CONTINUE OF CARE
[2019-12-16 06:58] LABS: ANION GAP 11.6 (8-16); CARBON DIOXIDE 25.8 mmol/L (21-32); CHLORIDE 97 mmol/L (98-107); CREATININE 0.7 mg/dL (0.6-1.3); GLUCOSE 89 mg/dL (74-106); POTASSIUM 4.4 mmol/L (3.5-5.1); SODIUM SERUM 130 mmol/L (136-145); UREA NITROGEN, BLOOD 11 mg/dL (7-18)
--- NOTE | 2019-12-16 07:25 | NUR ---
RECEIVED PATIENT FROM IGNACIO TONEY FOR CONTINUITY OF CARE. PATIENT IS SLEEPING AT THIS TIME. RESPIRATIONS EVEN AND UNLABORED, ROOM AIR. VISIBLE CHEST RISE AND FALL NOTED. ON TELE MONITORING. ABDOMEN SOFT AND NONTENDER. PUREED DIET. SKIN WARM, AND DRY. RIGHT FOOT WOUND NOTED. IV LEFT FOREARM G20, RUNNING NS AT 30 ML/HR. IVF RUNNING WELL. CONTRACTED. BEDBOUND. ON A DROPLET PRECAUTION FOR COVID-19 R/O. FALL PRECAUTION IN PLACE. BED IN LOW POSITION. CALL LIGHT IS WITHIN REACH. WILL CONTINUE TO MONITOR
--- NOTE | 2019-12-16 07:46 | NUR ---
DR. JIANG AND THE RESIDENT DOCTOR MADE ROUNDS.
[2019-12-16 08:00] VITALS: BP 125/49
[2019-12-16] MEDS: ASCORBIC ACID 500 MG TAB PO SCH (08:34)
[2019-12-16] MEDS: FERROUS SULFATE 325 MG TABEC PO SCH ×3 (08:34→17:01)
[2019-12-16] MEDS: LACTOBACILLUS RHAMNOSUS GG 1 EACH CAP PO SCH (08:34)
[2019-12-16] MEDS: LACTULOSE 20 GM/30 ML UDC PO SCH ×2 (08:34→21:59)
[2019-12-16] MEDS: DOCUSATE SODIUM 100 MG GELCAP PO SCH ×2 (08:34→21:00)
--- NOTE | 2019-12-16 08:44 | NUR ---
GIVEN MORNING MEDICATIONS PO, CRUSHED AND MIXED WITH APPLESAUCE. PATIENT TOLERATED WELL. EXPLAINED MEDICATIONS. PATIENT NEEDS HELP WITH EATING FOOD. CIGARETTE MACHINE FILLER AWARE.
[2019-12-16] MEDS ORDERED: FOAM DRESSING TP SCH (09:00)
--- NOTE | 2019-12-16 10:09 | NUR ---
PATIENT IS ASLEEP AT THIS TIME. O2SAT 99%, HR 82. BED IN LOW POSITION. CALL LIGHT IS WITHIN REACH. WILL CONTINUE TO MONITOR.
--- NOTE | 2019-12-16 10:30 | NUR ---
DISCONTINUED IVF PER MD ORDER. PATIENT IS SALINE LOCK.
[2019-12-16 12:00] VITALS: BP 129/79
--- NOTE | 2019-12-16 12:10 | NUR ---
FLAGYL IVPB WAS HUNG AT 100 ML PER HOUR. FERROUS SULFATE 325 MG TAB CRUSHED WAS ALSO GIVEN WITH APPLESAUCE. PATIENT TOLERATED MEDICATION WELL. PATIENT WAS AWAKE WITH EYES OPEN UPON COMMAND. COMFORT MEASURES WERE PROVIDED.
[2019-12-16] MEDS ORDERED: MILD SOAP AND WATER TP SCH (13:00)
--- NOTE | 2019-12-16 14:00 | NUR ---
FED PATIENT THE PUREED DIET. PATIENT ATE 20% OF MEAL. PATIENT WAS ABLE TO SWALLOW AND VERBALIZE WHEN SHE WAS FULL. PATIENT'S O2 SAT WAS 95% DURING FEEDING. SHE IS NOW RESTING IN THE SEMI-FOWLERS POSITION IN BED. WARM BLANKETS WERE PROVIDED.
[2019-12-16 16:00] VITALS: BP 124/44
--- NOTE | 2019-12-16 17:02 | NUR ---
GIVEN FERROUS SULFATE CRUSHED AND MIXED WITH APPLESAUCE. PATIENT TOLERATED WELL. EXPLAINED MEDICATION. WILL CONTINUE TO MONITOR.
--- NOTE | 2019-12-16 18:14 | NUR ---
NO BM THE WHOLE SHIFT, WAS UNABLE TO COLLECT OCCULT BLOOD. WILL ENDORSE IT TO BUILDING CONSTRUCTION CONTRACTOR RN
--- NOTE | 2019-12-16 19:23 | NUR ---
RECEIVED PT AAOX 1 - RESPONDING TO TOUCH AND SOUNDS , W/ EYES OPENING - NID - O2 SAT .WNL . IV SITE INTACT AND PATENT , LOW MANUEL SCALE . ON TELE MONITOR - SR . SAFETY MAEASURES IN PLACE . PLAN OF CARE DISCUSSED BUT POOR UNDERSTANDING DUE TO MENTAL STATUS . WILL CONT. TO MONITOR.
--- NOTE | 2019-12-16 19:23 | NUR ---
ENDORSED PATIENT TO PROJECT SYSTEMS ENGINEER NURSE FOR CONTINUITY OF CARE. PATIENT IS IN STABLE CONDITION.
[2019-12-16 20:00] VITALS: BP 117/48
[2019-12-16] MEDS ORDERED: predniSONE 10 MG TAB ONE (21:48)
[2019-12-16] MEDS ORDERED: CRUSHER, PILL MC ONE (21:55)
[2019-12-16] MEDS: predniSONE 5 MG TAB PO SCH (21:59)
[2019-12-17] VITALS: BP 124/50
--- NOTE | 2019-12-17 | NUR ---
MADE ROUNDS , NO S/SX OF ACUTE DISTRESS NOTED , WILL CONT. TO MONITOR.
--- NOTE | 2019-12-17 02:00 | NUR ---
SLEEPING - CHEST RISE AND FALL EQUALLY , WILL CONT. TO MONITOR.
[2019-12-17 04:00] VITALS: BP 112/55
--- NOTE | 2019-12-17 04:00 | NUR ---
MADE ROUNDS , NO S/SX OF ACUTE DISTRESS NOTED AT THIS TIME , ON TELE MONITOR - SR , O2 SAT WNL , WILL CONT. TO MONITOR.
[2019-12-17] MEDS: metroNIDAZOLE 500 MG/NS PREMIX 100 ML IV SCH ×3 (04:30→22:13)
--- NOTE | 2019-12-17 06:00 | NUR ---
RESTING ON BED , NO S/SX OF ACUTE DISTRESS NOTED AT THIS TIME , FLACC O - O2 SAT WNL .
--- NOTE | 2019-12-17 07:20 | NUR ---
RECEIVED PATIENT FROM CHILD DEVELOPMENT INSTRUCTOR RN, KATIUSKA, FOR CONTINUITY OF CARE. PT. IS SLEEPING AND IN BED. RESPIRATIONS EVEN AND UNLABORED, ROOM AIR WITH SAO2 OF 99%. ON TELE MONITORING. ABDOMEN SOFT AND NONTENDER. PUREED DIET. SKIN WARM, AND DRY. RIGHT FOOT WOUND NOTED. IV LEFT FOREARM G20, RUNNING NS TKO. IVF RUNNING WELL. CONTRACTED. BEDBOUND. ON A DROPLET PRECAUTION FOR COVID-19 R/O. FALL PRECAUTION IN PLACE. BED IN LOW POSITION. POC IS DISCUSSED. CALL LIGHT IS WITHIN REACH. WILL CONTINUE TO MONITOR
--- NOTE | 2019-12-17 07:20 | NUR ---
ENDORSED TO AM SHIFT - PT - STABLE.
[2019-12-17 08:00] VITALS: BP 138/52
[2019-12-17] MEDS: LACTOBACILLUS RHAMNOSUS GG 1 EACH CAP PO SCH (08:04)
[2019-12-17] MEDS: DOCUSATE SODIUM 100 MG GELCAP PO SCH ×2 (08:04→21:08)
[2019-12-17] MEDS: FERROUS SULFATE 325 MG TABEC PO SCH ×3 (08:04→16:42)
[2019-12-17] MEDS: ASCORBIC ACID 500 MG TAB PO SCH (08:04)
[2019-12-17] MEDS: LACTULOSE 20 GM/30 ML UDC PO SCH ×2 (08:05→21:07)
--- NOTE | 2019-12-17 08:05 | NUR ---
MORNING MEDICATIONS GIVEN. NO SIGNS OF DISTRESS NOTED. WILL CONTINUE TO MONITOR.
--- NOTE | 2019-12-17 10:15 | NUR ---
PT. IS CHANGED, CLEANED, AND TURNED. NO SIGNS OF DISTRESS NOTED. PT. FALLS ASLEEP QUICKLY BUT IS AROUSABLE. WILL CONTINUE TO MONITOR.
[2019-12-17] MEDS ORDERED: KETOROLAC 15 MG/ML VIAL IVP PRN (11:40)
[2019-12-17 12:00] VITALS: BP 144/62
--- NOTE | 2019-12-17 12:15 | NUR ---
PT. COMPLAINS OF GENERALIZED PAIN 8/10, FLACC SCORE OF 3. SPOKE TO DR. NICHOLE, NEW ORDERS FOR TORADOL TO BE GIVEN. WILL FOLLOW THROUGH.
--- NOTE | 2019-12-17 12:30 | NUR ---
TORADOL IVP GIVEN FOR GENERALIZED PAIN 02/12. NO SIGNS OF DISTRESS NOTED. BP 143/74, HR 85. WILL CONTINUE TO MONITOR.
--- NOTE | 2019-12-17 13:20 | NUR ---
PT. IS CHANGED, CLEANED, AND TURNED. NO SIGNS OF DISTRESS NOTED. RIGHT FOOT WOUND DRESSING REMOVED, CLEANED WITH SOAKED 4X4 BETADINE AND REINFORCED WITH KERLIX AND BAMBI BANDAGE. NO SIGNS OF DISTRESS NOTED. WILL CONTINUE TO MONITOR.
--- NOTE | 2019-12-17 15:23 | NUR ---
LAB CALLED FOR WOUND CULTURE CRITICAL OF POSITIVE ACINETOBACTER. REPORTED TO DR. NICHOLE, NO NEW ORDERS GIVEN. MD WILL REFER TO DR. STEWART. WILL CONTINUE TO MONITOR.
[2019-12-17 16:00] VITALS: BP 114/51
--- NOTE | 2019-12-17 16:30 | NUR ---
V/S TAKEN AND IS WNL, PERSISTENT HIGH TEMP OF 99.7F. WILL MEDICATE WITH TYLENOL. WILL CONTINUE TO MONITOR.
[2019-12-17] MEDS: ACETAMINOPHEN 325 MG TAB PO PRN (16:42)
--- NOTE | 2019-12-17 16:45 | NUR ---
TYLENOL PRN GIVEN FOR TEMP OF 99.7F. NO SIGNS OF DISTRESS NOTED. WILL CONTINUE TO MONITOR.
--- NOTE | 2019-12-17 19:10 | NUR ---
ENDORSED TO RN ENTEROSTOMAL RN, YADIRA, FOR CONTINUITY OF CARE.
--- NOTE | 2019-12-17 19:15 | NUR ---
RECEIVED REPORT FORM HENRIQUE RN DAYSHIFT NURSE AT BEDSIDE FOR CONTINUITY OF CARE, PT IN STABLE CONDITION.
[2019-12-17 20:00] VITALS: BP 139/47
--- NOTE | 2019-12-17 20:00 | NUR ---
PT WAS TURNED, AND REPOSITIONED IN BED, PT HAD NOT HAD A BM YET, AWAITING SAMPLE FOR OCCULT BLOOD TEST. PT IN BED SLEEPING BUT AROUSABLE TO NAME AND LIGHT SHAKING. PT IS BULGARIAN SPEAKING ONLY. SHE HAS A TORO CATHETER INTACT AND DRAINING DARK CRISTOBAL URINE. IV SITE ON LEFT F/A 20G INTACT AND RUNNING NORMAL SALINE TO KVO. PT HAS DRESSING ON RIGHT FOOT INTACT AND ASYMPTOMATIC. V/S FOLLOWS: T 97.8 P 74 R 15 B/P 139/47 02 98% ON ROOM AIR. ALL FALLS, DROPLET AND ASPIRATION PRECAUTIONS IN PLACE.
[2019-12-17] MEDS ORDERED: predniSONE 10 MG TAB ONE (20:23)
--- NOTE | 2019-12-17 21:00 | NUR ---
PT WAS GIVEN ORDERED LACTULOSE, COLACE AND PREDNISONE ORALLY CRUSHED WITH ICE CREAM AND PUREED FOOD. PT HAD FINISHED HER ICE CREAM WITH MEDICATION. ROCEPHIN HUNG AND RUNNING AT 100MLS/HR ORDERED. ALL DROPLET, FALLS AND ASPIRATION PRECAUTIONS IN PLACE. PT HAS NO S/S OF PAIN OR DISTRESS NOTED.
[2019-12-17] MEDS: predniSONE 5 MG TAB PO SCH (21:08)
--- NOTE | 2019-12-17 23:00 | NUR ---
PT WAS TURNED AND REPOSITIONED IN BED NO S/S OF PAIN OR DISTRESS NOTED. TORO CATHETER IN PLACE DRAINING CRISTOBAL URINE. ALL DROPLET, FALLS AND ASPIRATION PRECAUTIONS IN PLACE.
[2019-12-18] VITALS: BP 122/47
--- NOTE | 2019-12-18 | NUR ---
PT IN BED RESTING WITH EYES CLOSED, BUT AROUSABLE TO NAME AND LIGHT SHAKING. V/S FOLLOWS: T 97.8 P 77 R 14 B/P 122/47 02 95% ON ROOM AIR.
--- NOTE | 2019-12-18 02:00 | NUR ---
PT WAS TURNED AND REPOSITIONED IN BED, SHE HAS NO S/S OF PAIN OR DISTRESS NOTED. ALL FALLS AND DROPLET PRECAUTIONS IN PLACE.
[2019-12-18 04:00] VITALS: BP 134/57
[2019-12-18] MEDS ORDERED: Z-GUARD PASTE TP ONE (04:23)
--- NOTE | 2019-12-18 04:30 | NUR ---
ORAL CARE PROVIDED TO PT AND PT WAS TURNED, CHANGED AND REPOSITIONED, WOUND CARE PROVIDED ORDERED. ALL DROPLET AND ASPIRATION AND FALLS PROTOCOL IN PLACE.
[2019-12-18] MEDS: metroNIDAZOLE 500 MG/NS PREMIX 100 ML IV SCH ×2 (05:56→12:20)
[2019-12-18 07:08] LABS: BASOPHILS # (AUTO) 0.1 K/uL (0.00-0.22); BASOPHILS % (AUTO) 0.8 % (0.0-2.0); EOSINOPHILS % (AUTO) 0.1 % (0.0-4.0); HEMATOCRIT 31.5 % (36-48); HEMOGLOBIN 10.2 g/dL (12.0-16.0); LYMPHOCYTES # (AUTO) 0.6 K/uL (2.5-16.5); LYMPHOCYTES % (AUTO) 6.4 % (20.5-51.1); MEAN CORPUSCULAR HEMOGLOBIN 30 pg (27-31); MEAN CORPUSCULAR HGB CONC 33 g/dL (33-37); MEAN CORPUSCULAR VOLUME 92.1 fL (80-94); MONOCYTES # (AUTO) 0.5 K/uL (0.8-1.0); MONOCYTES % (AUTO) 5.5 % (1.7-9.3); NEUTROPHILS # (AUTO) 7.6 K/uL (1.8-7.7); NEUTROPHILS % (AUTO) 87.2 % (42.2-75.2); PLATELET COUNT (AUTO) 339 K/uL (140-450); RED BLOOD CELL COUNT(AUTO) 3.41 MIL/uL (4.20-5.40); RED CELL DISTRIBUTION WIDTH 16.5 % (11.6-13.7); WHITE BLOOD COUNT (AUTO) 8.7 K/uL (4.8-10.8)
[2019-12-18 07:13] LABS: ANION GAP 12.2 (8-16); CARBON DIOXIDE 23.7 mmol/L (21-32); CHLORIDE 102 mmol/L (98-107); CREATININE 0.7 mg/dL (0.6-1.3); GLUCOSE 124 mg/dL (74-106); POTASSIUM 3.9 mmol/L (3.5-5.1); SODIUM SERUM 134 mmol/L (136-145); UREA NITROGEN, BLOOD 13 mg/dL (7-18)
--- NOTE | 2019-12-18 07:30 | NUR ---
RECEIVED BEDSIDE REPORT FROM NIGHT NURSE. PATIENT IN STABLE CONDITION. PATIENT IN BED, ASLEEP, EASILY AROUSABLE BY NAME OR TOUCH. RESPIRATIONS EVEN AND UNLABORED. O2 ON @ 2L NC. O2 SAT 100%. SKIN WARM AND DRY TOUCH. BED IN LOW POSITION. BED ALARM ON. TORO CATHETER IN PLACE. CALL LIGHT WITHIN REACH.
[2019-12-18 08:00] VITALS: BP 132/51
[2019-12-18 08:05] LABS: MAGNESIUM 2.1 mg/dL (1.8-2.4); PHOSPHORUS 3.7 mg/dL (2.5-4.9)
[2019-12-18] MEDS: LACTULOSE 20 GM/30 ML UDC PO SCH ×2 (08:22→21:44)
[2019-12-18] MEDS: ASCORBIC ACID 500 MG TAB PO SCH (08:22)
[2019-12-18] MEDS: LACTOBACILLUS RHAMNOSUS GG 1 EACH CAP PO SCH (08:22)
[2019-12-18] MEDS: FERROUS SULFATE 325 MG TABEC PO SCH ×3 (08:22→17:04)
[2019-12-18] MEDS: DOCUSATE SODIUM 100 MG GELCAP PO SCH ×2 (08:22→21:44)
--- NOTE | 2019-12-18 09:00 | NUR ---
AM MEDICATIONS GIVEN. PATIENT WITH HOB ELEVATED, ASPIRATION PRECAUTION IN PLACE. O2 ON @ 2L NC, O2 SAT 98%. NO DISTRESS NOTED. BED IN LOW POSITION. CALL LIGHT WITHIN REACH.
--- NOTE | 2019-12-18 11:00 | NUR ---
PATIENT REMAINS IN STABLE CONDITION. HOB ELEVATED. REPOSITIONED FOR COMFORT. O2 SAT 97% ON O2 @ 2L VIA NC. CALL LIGHT WITHIN REACH.
[2019-12-18 12:00] VITALS: BP 131/45
--- NOTE | 2019-12-18 13:00 | NUR ---
PATIENT REMAINS IN STABLE CONDITION. HOB ELEVATED. REPOSITIONED FOR COMFORT. O2 SAT 98% ON O2 @ 2L VIA NC. CALL LIGHT WITHIN REACH.
--- NOTE | 2019-12-18 13:35 | NUR ---
12/18/19 RD FOLLOW UP COMPLETED PLEASE REFER TO NUTRITION PROGRESS NOTE UNDER CARE ACTIVITY FOR ESTIMATED NUTRITION NEEDS. RD RECOMMENDATIONS: 1. CONTINUE PUREE DIET TOLERATED 2. CONTINUE ENSURE TID 3. PROVIDE FEEDING ASSISTANCE WITH MEALS AND ENCOURAGE INCREASED PO INTAKE 4. RD TO FOLLOW-UP 2-3 DAYS, HIGH RISK NOLBERTO HERNÁNDEZ MBA, RD
[2019-12-18] MEDS ORDERED: SODIUM PHOSPHATE 118 ML ENEM RC SCH (14:00)
--- NOTE | 2019-12-18 14:30 | NUR ---
SPOKE WITH GURDEEP DAVE, STATED THAT SHE SHOULD BE ON THE CONTACT LIST FOR PT. TRANSFERRED BILLPEE TO ADMITTING TO PLACE HER NAME DOWN.
[2019-12-18 16:00] VITALS: BP 137/52
--- NOTE | 2019-12-18 17:30 | NUR ---
PATIENT ASLEEP, ABLE TO WAKE BY NAME OR TOUCH. NO S/S OF DISTRESS NOTED. ENEMA GIVEN ORDERED, EFFECTIVE.
--- NOTE | 2019-12-18 19:06 | NUR ---
PATIENT IN STABLE CONDITION. WILL ENDORSE TO NIGHT NURSE FOR CONTINUITY OF CARE.
--- NOTE | 2019-12-18 19:07 | NUR ---
RECEIVED REPORT FROM STATOR WINDER NURSE. PATIENT. LYING DOWN IN BED. NO DISTRESS NOTED. DENIES ANY PAIN. FLACC 0. AAOX1, CONFUSED. SKIN COLOR APPROPRIATE TO ETHNICITY, WARM TO TOUCH. HAS SACRAL WOUND AND RIGHT FOOT ULCER, DRESSINGS ARE DRY AND INTACT. IV SITE INTACT, PATENT, AND INFUSING IVF PER MD ORDERS. REVIEWED PLAN OF CARE WITH PATIENT. REINFORCEMENT NEEDED. SAFETY MEASURES IN PLACE, CALL LIGHT WITHIN REACH. WILL CONTINUE TO MONITOR. Addendum: 12/18/19 at 2103 by Aryan Chow RN *CORRECTION* RECEIVED REPORT FROM AM SHIFT NURSE. NOT STATOR WINDER NURSE.
[2019-12-18 20:00] VITALS: BP 131/61
--- NOTE | 2019-12-18 21:30 | NUR ---
SCHEDULED MEDICATIONS DUE GIVEN. ASSISTED ORNAMENT MAKER HAND IN CLEANING AND REPOSITIONING PATIENT. PATIENT TOLERATED WELL. WILL CONTINUE TO MONITOR.
[2019-12-18] MEDS: AMOXIL/CLAVULANATE 500/125 MG 1 TAB PO SCH (21:44)
[2019-12-18] MEDS: predniSONE 5 MG TAB PO SCH (21:44)
[2019-12-19] VITALS: BP 145/66
--- NOTE | 2019-12-19 00:15 | NUR ---
PATIENT LYING DOWN IN BED SLEEPING, AROUSABLE BY VOICE. CONDITION UNCHANGED. WILL CONTINUE TO MONITOR.
--- NOTE | 2019-12-19 02:45 | NUR ---
PATIENT LYING DOWN IN BED, AROUSABLE BY VOICE. CONDITION UNCHANGED. WILL CONTINUE TO MONITOR.
[2019-12-19 04:00] VITALS: BP 135/62
[2019-12-19 05:59] LABS: LYMPHOCYTES # (AUTO) 0.6 K/uL (2.5-16.5); MEAN CORPUSCULAR HEMOGLOBIN 30 pg (27-31); MONOCYTES # (AUTO) 0.3 K/uL (0.8-1.0)
[2019-12-19] MEDS: AMOXIL/CLAVULANATE 500/125 MG 1 TAB PO SCH ×2 (06:09→12:16)
--- NOTE | 2019-12-19 06:10 | NUR ---
SCHEDULED MEDICATIONS DUE GIVEN. WILL CONTINUE TO MONITOR.
[2019-12-19 06:13] LABS: BASOPHILS % (AUTO) 0.5 % (0.0-2.0); HEMATOCRIT 29.4 % (36-48); HEMOGLOBIN 9.7 g/dL (12.0-16.0); LYMPHOCYTES % (AUTO) 6.8 % (20.5-51.1); MEAN CORPUSCULAR HGB CONC 33 g/dL (33-37); MEAN CORPUSCULAR VOLUME 89.7 fL (80-94); NEUTROPHILS # (AUTO) 7.6 K/uL (1.8-7.7); NEUTROPHILS % (AUTO) 88.7 % (42.2-75.2); PLATELET COUNT (AUTO) 245 K/uL (140-450); RED BLOOD CELL COUNT(AUTO) 3.28 MIL/uL (4.20-5.40); WHITE BLOOD COUNT (AUTO) 8.6 K/uL (4.8-10.8)
[2019-12-19 07:03] LABS: ANION GAP 9.9 (8-16); CARBON DIOXIDE 25.3 mmol/L (21-32); CHLORIDE 103 mmol/L (98-107); CREATININE 0.7 mg/dL (0.6-1.3); GLUCOSE 118 mg/dL (74-106); POTASSIUM 4.2 mmol/L (3.5-5.1); SODIUM SERUM 134 mmol/L (136-145); UREA NITROGEN, BLOOD 17 mg/dL (7-18)
--- NOTE | 2019-12-19 07:27 | NUR ---
GAVE REPORT AM SHIFT NURSE FOR CONTINUITY OF CARE. PATIENT IN STABLE CONDITION.
--- NOTE | 2019-12-19 07:49 | NUR ---
RECEIVED REPORT FROM NIGHT RN. PT IN BED. AOX1, MUMBLES WORDS. FLACC 0, NO SOB, RESPIRATIONS ARE EVEN AND UNLABORED. ON ROOM AIR. IV ON LFA 20G ON SL. ISOLATION PRECAUTION OBSERVED. SAFETY PRECAUTIONS IN PLACE. CALL LIGHT WITHIN REACH. WILL CONT TO MONITOR
[2019-12-19 08:00] VITALS: BP 141/68
[2019-12-19] MEDS: FERROUS SULFATE 325 MG TABEC PO SCH ×3 (08:00→17:00)
[2019-12-19] MEDS ORDERED: AMOX1TAB15 PO (08:36)
[2019-12-19] MEDS ORDERED: LACT10CA PO (08:36)
[2019-12-19] MEDS ORDERED: FER325 PO (08:36)
[2019-12-19] MEDS ORDERED: LEVO500T2 PO (08:36)
[2019-12-19] MEDS ORDERED: VITC500 PO (08:36)
--- NOTE | 2019-12-19 08:50 | NUR ---
DUE MORNING MEDS CRUSHED MIXED WITH PUDDING AND GIVEN PO. TOLERATED WELL
[2019-12-19] MEDS ORDERED: LEVOFLOXACIN 500 MG TAB PO SCH (09:00)
--- NOTE | 2019-12-19 09:00 | NUR ---
WOUND CARE NURSE AT BEDSIDE. WOUND DRESSINGS CHANGED
--- NOTE | 2019-12-19 09:03 | NUR ---
WOUND CARE EVALUATION NOTE: REASON FOR EVALUATION: LOW MANUEL SCALE AND SACRALCOCCYX WOUND SKIN ASSESSMENT DONE WITH THIS 84 Y/O FEMALE PT ADMITTED TO [facility] AND SEEN BY CAKE BATTER MIXER FOR RIGHT FOOT ULCER PER RECORD: RIGHT FOOT FIRST METATARSOPHALANGEAL JOINT PRESSURE ULCER WITH UNDERLYING OSTEOMYELITIS, RIGHT FOOT, PERIPHERAL ARTERIAL DISEASE. SKIN IS WARM AND DRY, THIN AND EASY TO BE TORN, UPPER ARMS MULTIPLE ECCHYMOSIS. BLE NO HAIR GROWTH, NO EDEMA. UPPER AND LOWER EXTREMITIES SEVERE CONTRACTURES AND DEFORMITIES. LEFT FIRST AND SECOND DIGIT TOES DRY BROWN SCABS, BRITTNI WOUND SKIN INTACT, NO REDNESS. DORSAL PEDAL PULSES PRESENT AND NORMAL. CAPILLARY REFILLED >2 SEC. X 10 TOES.CONTINUE FOLLOW PODIATRY ORDER FOR RIGHT FOOT, PLAN OF CARE DISCUSSED WITH PRIMARY RN. FURTHER SKIN FAILURES INDICATED RELATED TO MEDICAL AND PHYSICAL COMORBIDITIES. INTEGUMENTARY: -SACROCOCCYX PRESSURE ULCER STAGE 2, 3X3X0.1CM, WOUND BED 100% GRANULATION TISSUE, WOUND BED MOIST, NO ODOR, WOUND EDGE FLAT NO TUNNELING NO UNDERMINING, BRITTNI-WOUND SKIN INTACT SURROUNDING REDNESS INDICATED FURTHER DAMAGE -LEFT AND RIGHT HEELS BLANCHABLE REDNESS -RIGHT FOOT PAD 2X2X0.1CM DRESSING DCI RECOMMENDATIONS: -APPLY FOAM DRESSING TO SPINAL AREA, R/L SCAPULARS, R/L HIPS, R/L MEDIAL KNEES QD PREVENTIONS -RIGHT FOOT WOUND APPLY SOAKED BETADINE SOLUTION, WRAP WITH KERLIX ROLLS AND SECURED WITH TAPE QD -CLEANSE SACRALCOCCYX WITH WOUND CLEANSING SOLUTION AND APPLY Z-GUARD TO WOUND BED APPLY FOAM DRESSING, SECURE WITH TAPE QD AND PRN IF SOILING -APPLY HEEL RAISER TO BOTH HEELS AT ALL TIMES -OFFLOAD BILATERAL HEELS BY PLACING PILLOWS UNDER CALVES UNLESS OTHERWISE CONTRAINDICATED -PRESSURE REDISTRIBUTION SURFACE THERAPY -TURN AND REPOSITION Q2H, OFFLOAD SACRALCOCCYX BY TURNING RIGHT AND LEFT -CONTINUE TO FOLLOW RD RECOMMENDATIONS ALL ABOVE RECOMMENDATIONS DISCUSSED WITH PRIMARY RN. WILL FOLLOW UP PT Q7-10 DAYS. PLEASE CONTACT WOUND CARE NURSE FOR ANY QUESTION AND CHANGE OF WOUND CONDITION
[2019-12-19] MEDS: DOCUSATE SODIUM 100 MG GELCAP PO SCH (09:45)
[2019-12-19] MEDS: LACTOBACILLUS RHAMNOSUS GG 1 EACH CAP PO SCH (09:45)
[2019-12-19] MEDS: LACTULOSE 20 GM/30 ML UDC PO SCH (09:45)
[2019-12-19] MEDS: ASCORBIC ACID 500 MG TAB PO SCH (09:54)
--- NOTE | 2019-12-19 11:30 | NUR ---
PERICARE DONE. REPOSITIONED PATIENT. TORO BAG DRAINED
[2019-12-19 12:00] VITALS: BP 139/66
[2019-12-19] MEDS ORDERED: Z-GUARD PASTE TP SCH (13:00)
[2019-12-19] MEDS ORDERED: FOAM DRESSING TP SCH (13:00)
--- NOTE | 2019-12-19 13:50 | NUR ---
ST CLARIFICATION NOTE Pt DEMONSTRATES MODERATE OROPHARYNGEAL DYSPHAGIA, ABLE TO TOLERATE ICE CHIPS, NTL BY 1/2-3/4 TSP, AND PUREE BY 1/2 TSP W/O OVERT S/S OF ASPIRATION OR PENETRATION NOTED. AP TRANSFER WAS SLOW OVERALL (2-5 SEC) WITH ADEQUATE SWALLOW RESPONSE NOTED WITH PUREE AND NTL BY 1/2 TSP. LARYNGEAL ELEVATION AND EXCURSION WERE COMPLETED. Pt DEMONSTRATED DELAYED SWALLOW RESPONSE WITH THIN BY 1/2 TSP AND FULL TSP TRIAL OF NTL, WITH WEAK AIRWAY PROTECTIVE COUGH NOTED. PO INTAKE IS GUARDED D/T, FOR SEEN, POOR ENDURANCE AND PRESENTLY POOR DESIRE FOR FOOD/LIQUIDS. RECOMMEND: 1. PUREE AND NECTAR THICK LIQUIDS BY 1/2 TSP ONLY. 2. ASPIRATION PRECAUTIONS, ORAL CARE, AND FEEDER NEEDED. 3. PRESENT TSP FLAT; DO NOT POUR FOOD/LIQUIDS INTO MOUTH. 4. ST FOR SWALLOW TX ORDERED FOR ONGOING DIET ANALYSIS, SAFE SWALLOW STRATEGIES, AND Pt/CG EDUCATION. 5. MONITOR PO INTAKE D/T POOR PO INTAKE ANTICIPATED. MAY REQUIRE ALTERNATE MEANS OF NUTRITION TO SUPPLEMENT PO. LUCIUS SCHUZL, MS, CCC-OVERLOCK SEWING MACHINE OPERATOR
--- NOTE | 2019-12-19 14:30 | NUR ---
PT IN BED. NO APPARENT DISTRESS, NO SOB, FLACC 0
--- NOTE | 2019-12-19 16:30 | NUR ---
GAVE DISCHARGE REPORT TO IGNACIO GOMEZ FROM [facility] [place]. THE PT WILL GO BACK WITH PO ATB FOR OSTEOMYELITIS. BALLOON MAKER TIME IS 1730 BY [facility]
--- NOTE | 2019-12-19 17:30 | NUR ---
REMOVED IV WITH LUMEN INTACT. TELE MONITOR REMOVED. PERICARE DONE. PT REPOSITIONED. AWAITING TRANSPORT
--- NOTE | 2019-12-19 18:45 | NUR ---
PICKED UP BY [facility]. ACCOMPANIED BY 2 PELLET PREPARATION OPERATOR. IN STABLE CONDITION
== END 2019-12-19 18:40 | DRG 811 ==
LOC: MED 12:06 → MTU 15:11 → EEVIPCON 15:11 → MTU 15:42
PROVIDERS: ADMIT Family Medicine; ATTEND Family Medicine
PROC: 30233N1 Transfusion of Nonautologous Red Blood Cells into Peripheral Vein, Percutaneous Approach (ICD-10-PCS; principal; 2019-12-14)
DX: D64.9 Anemia, unspecified (principal); E43 Unspecified severe protein-calorie malnutrition; E87.1 Hypo-osmolality and hyponatremia; M86.171 Other acute osteomyelitis, right ankle and foot; Z68.1 Body mass index [BMI] 19.9 or less, adult; K21.9 Gastro-esophageal reflux disease without esophagitis; E78.5 Hyperlipidemia, unspecified; F32.9 Major depressive disorder, single episode, unspecified; J45.909 Unspecified asthma, uncomplicated; K57.90 Diverticulosis of intestine, part unspecified, without perforation or abscess without bleeding; M06.9 Rheumatoid arthritis, unspecified; M81.0 Age-related osteoporosis without current pathological fracture; Z86.711 Personal history of pulmonary embolism; Z88.5 Allergy status to narcotic agent; M40.204 Unspecified kyphosis, thoracic region; I70.90 Unspecified atherosclerosis; R62.7 Adult failure to thrive; R53.81 Other malaise; Z74.01 Bed confinement status; L89.899 Pressure ulcer of other site, unspecified stage; Z20.828 Contact with and (suspected) exposure to other viral communicable diseases
CPT/HCPCS: 36415; 36430; 71045; 73630; 80048; 80053; 81001; 82272; 82533; 82607; 82728; 82746; 83036; 83540; 83605; 83690; 83735; 83880; 83935; 84100; 84300; 84443; 84484; 85025; 85045; 85610; 85651; 85730; 86886; 86900; 86901; 86920; 87040; 87070; 87075; 87081; 87086; 87186; 87205; 92610; 93005; 93925; 93971; 96360; 99285; J0696; J1885; J3370; J3490; J7030; J7060; J7512; P9016; Q0092; U0003-CS